=== PATIENT | male | born 1965 | race Caucasian/White ===

== ENCOUNTER → 2019-05-03 14:21 | Outpatient (BNVA) | payer MEDICAID, SELFPAY | PROVIDERS: Visit Provider Nurse Practitioner Family | DX: M70.22 Olecranon bursitis, left elbow (principal); M77.12 Lateral epicondylitis, left elbow; M25.522 Pain in left elbow | CPT/HCPCS: 73080 ==

== ENCOUNTER 2019-11-03 15:24 | Emergency (ER) | payer MEDICAID, SELFPAY ==
[2019-11-03 15:33] VITALS: BP 182/101; PULSE 90; RESP 16; TEMP 36.7; O2SAT 99; BMI 38.9
[2019-11-03 15:52] VITALS: BP 182/101; PULSE 86; RESP 18; O2SAT 99
[2019-11-03 15:54] LABS: Glucose Point of Care 73 mg/dL (70-110)
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
--- NOTE | 2019-11-03 15:56 | XR_ITS ---
WS: [id number] EXAM: AP CHEST: PORTABLE UPRIGHT DATE OF EXAM: 11/03/2019, 1606 hour COMPARISON: Chest x-ray from 05/05/2016. HISTORY: Patient is 54 years old with chest pain. FINDINGS: The cardiac silhouette is normal in size. The mediastinal contours are normal. The pulmonary vas cularity is normal. The lungs are clear of infiltrate. There is no effusion or pneumothorax. No ac mago bony abnormality is seen. XR/XR chest 1V portable [id number] IMPRESSION: No acute pulmonary disease.
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
[2019-11-03 16:26] VITALS: RESP 18; O2SAT 96
[2019-11-03] MEDS: morphine 4 mg/mL SDV 1 mL IVP (16:26)
[2019-11-03 16:27] VITALS: BP 173/80; PULSE 82; RESP 18; O2SAT 97
[2019-11-03 16:32] LABS: Basophils # 0.1 10^3/uL (0.0-0.1); Basophils % 0.7 %; Eosinophils # 0.2 10^3/uL (0.0-0.8); Hemoglobin 14.5 g/dL (11.7-16.6); Lymphocytes % 19.6 %; Mean Corpuscular HGB Conc 32.2 g/dL (30.0-36.0); Mean Corpuscular Hemoglobin 26.8 pg (28.0-34.0); Mean Platelet Volume 9.8 fL (7.4-10.4); Monocytes # 0.6 10^3/uL (0.2-0.9); Monocytes % 5.9 %; Neutrophils # 7.13 10^3/uL (1.8-7.7); Neutrophils % 71.6 %; Nucleated Red Blood Cells % 0 %; Platelet Count 276 10^3/cmm (130-400); Red Blood Count 5.42 10^6/uL (4.1-5.3); Red Cell Distribution Width 13.2 % (12.1-15.1)
[2019-11-03] MEDS: diazePAM 5 mg Tablet PO (16:32)
--- NOTE | 2019-11-03 16:32 | PC.NURSE ---
Patient educated urine sample needed. Patient reports he does not believe that he will be able to go yet. Urinal given to patient and educated to go as soon as he can.
[2019-11-03] MEDS: promethazine 25 mg Tablet PO (16:46)
[2019-11-03 16:48] LABS: Glucose Point of Care 108 mg/dL (70-110)
[2019-11-03 16:51] LABS: Alanine Aminotransferase 38 U/L (0-41); Albumin Level 4.2 g/dL (3.5-5.2); Alkaline Phosphatase 66 IU/L (40-130); Anion Gap 15.2 (5-19); Aspartate Amino Transferase 42 U/L (0-40); Blood Urea Nitrogen 21 mg/dL (6-20); Calcium 9.8 mg/dL (8.5-10.5); Carbon Dioxide 23 mmol/L (22-29); Chloride 103 mmol/L (98-107); Globulin 3.6 g/dL (1.3-4.6); Glomerular Filtration Rate 57.7 mL/min (90-130); Glucose 100 mg/dL (65-115); Osmolality Calculated 281 mOsm/kg (285-295); Potassium 4.2 mmol/L (3.5-5.1); Sodium 137 mmol/L (136-145); Total Bilirubin 0.4 mg/dL (0.15-1.2); Total Protein 7.8 g/dL (6.6-8.7)
[2019-11-03 17:54] LABS: Bilirubin Urine Neg (NEGATIVE); Blood Urine Neg (Negative); Glucose Urine UA Norm (Normal); Ketones Urine Negative (Negative); Nitrate Urine Negative (Negative); Protein Urine 1+ (Negative); Urine Appearance Clear (CLEAR); Urine Color Yellow (Yellow); Urobilinogen Urine Norm (Negative); pH Urine 5 (5-7)
[2019-11-03 17:55] LABS: Add Urine Microscopic? YES; Leukocyte Esterase Urine Negative (Negative)
[2019-11-03 17:56] LABS: Add Urine Culture? No; Bacteria Urine TRACE; Squamous Epithelial Cell Urine 0-4 (0-5); WBC Urine 0-4 /hpf (0-5)
[2019-11-03 18:19] VITALS: BP 187/102; PULSE 79; RESP 16; O2SAT 98
== END 2019-11-03 18:19 | disposition home or self-care (01) ==
PROVIDERS: Emergency Provider Family Medicine
DX: M54.2 Cervicalgia (principal); M54.10 Radiculopathy, site unspecified; Z79.82 Long term (current) use of aspirin; Z79.4 Long term (current) use of insulin; V89.2XXA Person injured in unspecified motor-vehicle accident, traffic, initial encounter
CPT/HCPCS: 12345; 36415; 36416; 71045; 72125; 73030; 80053; 81001; 82962; 85025; 96374; 96375; 99283; J2270; Q0169

== ENCOUNTER 2020-02-27 19:05 | Emergency (ER) | payer MEDICAID, SELFPAY ==
[2020-02-27 19:10] VITALS: BP 139/77; PULSE 113; RESP 18; TEMP 36.7; O2SAT 98; BMI 40.1
--- NOTE | 2020-02-27 19:33 | XR_ITS ---
WS: [id number] XR KUB portable [id number] REASON FOR EXAM: vomiting FINDINGS: Unremarkable bowel gas pattern. No free air or retroperitoneal air. No mass or significant calcification. XR/XR KUB portable [id number] IMPRESSION: No acute abnormality.
--- NOTE | 2020-02-27 19:34 | W.ED.NAVMDI ---
HPI - Nausea/Vomiting/Diarrhea General: Chief complaint: Nausea/Vomiting/Diarrhea Stated complaint: expericencing flu symptoms Time Seen by Provider: 02/27/20 19:17 History of Present Illness: HPI Narrative: 54-year-old diabetic male presenting with 16 hours of vomiting and diarrhea. He notes watery vomit, and watery diarrhea. No blood. He is not sure if he has had a fever. He has generalized epigastric pain here and there. He is not been able to hold much down. His blood sugar has been from 44-277 he says, without any insulin. MD elicited complaint: nausea, vomiting, diarrhea and abdominal pain Pertinent past history: other Onset (ago): hour(s) Description of vomiting: watery Description of diarrhea: watery Associated nausea: Yes Associated abdominal pain: Yes Location of pain: Diffuse Radiation: diffuse Pain consistency: intermittent Severity: mild Quality: cramping Relieving factors: none Associated symtoms: Reports nausea; Denies change in vision, chest pain, cough, dizziness, dysuria or headache(s) Review of Systems Const: Denies: fever(s) Eyes: Denies: change in vision Card: Denies: chest pain Resp: Denies: dyspnea GI: Reports: nausea : Denies: dysuria Neuro: Denies: headache(s) or dizziness PFSH ED PFSH: Surgical History Hx of amputation of foot (~2018) Hx of cholecystectomy (~2005) Hx of sinus surgery Social History Smoking and tobacco status: never smoked Second hand smoke exposure: No Alcohol intake: never Lives independently: Yes Current occupational status: employed History of recent travel: No Current gender identity: Male Physical Exam Const: GENERAL APPEARANCE: well developed ORIENTATION/CONSCIOUSNESS: Yes oriented to person, Yes oriented to place and Yes oriented to time HENMT: COMMON NORMALS: normocephalic, external ears normal and Normal external nose present HEAD & SCALP: normocephalic FACE & SINUS: normal facial exam NOSE: Normal external nose present and No nasal discharge present EXTERNAL EAR: Yes external ears normal Eye: COMMON NORMALS: Equal, round and reactive pupils present, EOMs intact bilaterally and conjunctivae normal EYELID: eyelids normal CONJUNCTIVA: Yes conjunctivae normal PUPIL: Yes Equal, round and reactive pupils present Neck/C-Spine: GENERAL: No tracheal deviation Chest: COMMONS NORMALS: normal inspection of the chest CHEST: No tenderness Resp: COMMON NORMALS: clear to auscultation bilaterally EFFORT & INSPECTION: No tachypneic, No respiratory distress, No retractions, No uses accessory muscles and No tracheal deviation AUSCULTATION: clear to auscultation bilaterally, no rhonchi, no wheezes and lung sounds not diminished Cardio: COMMON NORMALS: regular rate and regular rhythm RATE: regular rate RHYTHM: regular rhythm HEART SOUNDS: no murmurs PERIPHERAL PULSES: radial pulses present GI: INSPECTION: No abdominal distension AUSCULTATION: No Hyperactive bowel sounds present and No Hypoactive bowel sounds present PALPATION: Yes Tenderness to palpation present (GI) (mild epigastric), No Guarding due to palpation present (GI) and No Rigid due to palpation PERCUSSION: no dullness to percussion and no tympanic to percussion Neuro: SENSORIUM/ORIENTATION: Yes oriented to person, Yes oriented to place and Yes oriented to time Psych: COMMON NORMALS: mental status grossly normal Skin: COMMON NORMALS: no rashes or lesions noted GENERAL SKIN EXAM: no rashes or lesions noted Course Vital Signs: Vital signs: Vital Signs Temperature 98.0 F 02/27/20 19:10 Pulse Rate 18 L 02/27/20 22:30 Respiratory Rate 18 02/27/20 22:30 Blood Pressure 187/82 02/27/20 22:30 Pulse Oximetry 97 02/27/20 22:30 MDM - Nausea/Vomiting/Diarrhea MDM Narrative: Medical decision making narrative: Bicarbonate level 20. White blood cell count 18.3. Mild bump in his creatinine. He has had 2 L here, and is feeling much better. No vomiting here. CT of the abdomen shows mild jejunitis. He will be treated with antibiotics for empiric coverage, especially given his leukocytosis with left shift. He was given the option for observation in the hospital, but prefers to go home since he is feeling so much better. He will go home on antiemetics, antibiotics. Liquids for 24 hours. He knows to return for feeling worse, to check his sugar, and to take his blood pressure medicine when he gets home. Lab Data: Labs: Lab Results 12/13/20 12/13/20 12/13/20 Range/Units 19:45 19:45 20:05 WBC Cancelled 18.3 H Corrected WBC Cancelled RBC Cancelled 5.73 H Hgb Cancelled 15.2 Hct Cancelled 47.4 MCV Cancelled 82.7 MCH Cancelled 26.5 L MCHC Cancelled 32.1 RDW Cancelled 13.2 Plt Count Cancelled 352 MPV Cancelled 10.1 Gran % Cancelled Neut % (Auto) Cancelled 91.4 Lymph % (Auto) Cancelled 4.3 [place] % (Auto) Cancelled 3.8 Eos % (Auto) Cancelled 0.0 Baso % (Auto) Cancelled 0.1 Neut # (Auto) Cancelled 16.78 H Lymph # (Auto) Cancelled 0.8 [place] # (Auto) Cancelled 0.7 Eos # (Auto) Cancelled 0.0 Baso # (Auto) Cancelled 0.0 Absolute Gran (aut o) Cancelled Nucleated RBC % (a uto) Cancelled 0 Nucleated RBCs # Cancelled 0.0 Sodium 136 (136-145) mmol/L Potassium 4.7 (3.5-5.1) mmol/L Chloride 100 (98-107) mmol/L Carbon Dioxide 20 L (22-29) mmol/L Anion Gap 20.7 H (5-19) BUN 22 H (6-20) mg/dL Creatinine 1.6 H (0.7-1.2) mg/dL GFR Calculation 45.4 L (90-130) mL/min Glucose 354 H (65-115) mg/dL POC Glucose (70-110) mg/dL Calculated Osmolal ity 300 H (285-295) mOsm/k g Lactate (0.5-2.2) mmol/L Calcium 10.1 (8.5-10.5) mg/dL Total Bilirubin 1.0 (0.15-1.2) mg/dL AST 25 (0-40) U/L ALT 26 (0-41) U/L Alkaline Phosphata se 88 (40-130) IU/L Total Protein 7.5 (6.6-8.7) g/dL Albumin 4.3 (3.5-5.2) g/dL Globulin 3.2 (1.3-4.6) g/dL Lipase 26 (13-60) U/L Urine Color (Yellow) Urine Appearance (CLEAR) Urine pH (5-7) Ur Specific Gravit y (1.005-1.030) Urine Protein (Negative) Urine Glucose (UA) (Normal) Urine Ketones (Negative) Urine Blood (Negative) Urine Nitrate (Negative) Urine Bilirubin (Negative) Urine Urobilinogen (Negative) mg/dL Ur Leukocyte Hayde ase (Negative) Urine RBC (0-2) /hpf Urine WBC (0-5) /hpf Ur Squamous Epith Cells (0-5) /hpf Amorphous Sediment Urine Bacteria (NONE) /hpf Hyaline Casts /lpf Serum Ketones (Negative) 02/27/20 02/27/20 02/27/20 Range/Units 20:05 20:05 20:08 WBC Corrected WBC RBC Hgb Hct MCV MCH MCHC RDW Plt Count MPV Gran % Neut % (Auto) Lymph % (Auto) [place] % (Auto) Eos % (Auto) Baso % (Auto) Neut # (Auto) Lymph # (Auto) [place] # (Auto) Eos # (Auto) Baso # (Auto) Absolute Gran (aut o) Nucleated RBC % (a uto) Nucleated RBCs # Sodium (136-145) mmol/L Potassium (3.5-5.1) mmol/L Chloride (98-107) mmol/L Carbon Dioxide (22-29) mmol/L Anion Gap (5-19) BUN (6-20) mg/dL Creatinine (0.7-1.2) mg/dL GFR Calculation (90-130) mL/min Glucose (65-115) mg/dL POC Glucose 324 (70-110) mg/dL Calculated Osmolal ity (285-295) mOsm/k g Lactate 2.2 (0.5-2.2) mmol/L Calcium (8.5-10.5) mg/dL Total Bilirubin (0.15-1.2) mg/dL AST (0-40) U/L ALT (0-41) U/L Alkaline Phosphata se (40-130) IU/L Total Protein (6.6-8.7) g/dL Albumin (3.5-5.2) g/dL Globulin (1.3-4.6) g/dL Lipase (13-60) U/L Urine Color (Yellow) Urine Appearance (CLEAR) Urine pH (5-7) Ur Specific Gravit y (1.005-1.030) Urine Protein (Negative) Urine Glucose (UA) (Normal) Urine Ketones (Negative) Urine Blood (Negative) Urine Nitrate (Negative) Urine Bilirubin (Negative) Urine Urobilinogen (Negative) mg/dL Ur Leukocyte Hayde ase (Negative) Urine RBC (0-2) /hpf Urine WBC (0-5) /hpf Ur Squamous Epith Cells (0-5) /hpf Amorphous Sediment Urine Bacteria (NONE) /hpf Hyaline Casts /lpf Serum Ketones Negative (Negative) 02/27/20 02/27/20 Range/Units 20:50 22:32 WBC Corrected WBC RBC Hgb Hct MCV MCH MCHC RDW Plt Count MPV Gran % Neut % (Auto) Lymph % (Auto) [place] % (Auto) Eos % (Auto) Baso % (Auto) Neut # (Auto) Lymph # (Auto) [place] # (Auto) Eos # (Auto) Baso # (Auto) Absolute Gran (aut o) Nucleated RBC % (a uto) Nucleated RBCs # Sodium (136-145) mmol/L Potassium (3.5-5.1) mmol/L Chloride (98-107) mmol/L Carbon Dioxide (22-29) mmol/L Anion Gap (5-19) BUN (6-20) mg/dL Creatinine (0.7-1.2) mg/dL GFR Calculation (90-130) mL/min Glucose (65-115) mg/dL POC Glucose 345 (70-110) mg/dL Calculated Osmolal ity (285-295) mOsm/k g Lactate (0.5-2.2) mmol/L Calcium (8.5-10.5) mg/dL Total Bilirubin (0.15-1.2) mg/dL AST (0-40) U/L ALT (0-41) U/L Alkaline Phosphata se (40-130) IU/L Total Protein (6.6-8.7) g/dL Albumin (3.5-5.2) g/dL Globulin (1.3-4.6) g/dL Lipase (13-60) U/L Urine Color Yellow (Yellow) Urine Appearance Clear (CLEAR) Urine pH 5 (5-7) Ur Specific Gravit y 1.020 (1.005-1.030) Urine Protein 1+ H (Negative) Urine Glucose (UA) 4+ H (Normal) Urine Ketones Negative (Negative) Urine Blood 2+ H (Negative) Urine Nitrate Negative (Negative) Urine Bilirubin 1+ H (Negative) Urine Urobilinogen Norm (Negative) mg/dL Ur Leukocyte Hayde ase Negative (Negative) Urine RBC 0-4 H (0-2) /hpf Urine WBC 0-4 H (0-5) /hpf Ur Squamous Epith Cells 0-4 H (0-5) /hpf Amorphous Sediment Not Reportable Urine Bacteria Trace (NONE) /hpf Hyaline Casts 5-10 H /lpf Serum Ketones (Negative) Discharge Plan Discharge Patient Disposition: Home Clinical Impression: Jejunitis Condition: Stable Prescriptions: New Cipro 500 mg tablet 500 mg PO BID Qty: 14 RF: 0 Flagyl 500 mg tablet 500 mg PO BID 7 Days Qty: 14 RF: 0 Zofran 4 mg tablet 4 mg PO Q6H PRN (Reason: nausea and vomiting) Qty: 10 RF: 0 No Action olmesartan-hydrochlorothiazide [Benicar HCT] 40-25 mg tablet 1 tab PO DAILY RF: 0 aspirin 325 mg tablet,delayed release (DR/EC) 325 mg PO DAILY RF: 0 carisoprodol [Soma] 250 mg tablet 250 mg PO TID PRN (Reason: muscle pain) Qty: 60 RF: 0 amlodipine 10 mg tablet 10 mg PO DAILY Qty: 30 RF: 5 Lantus Solostar U-100 Insulin 100 unit/mL (3 mL) insulin pen 90 unit SUBCUT .HS 30 Days Qty: 30 RF: 4 metoprolol succinate [Toprol XL] 50 mg tablet extended release 24 hr 50 mg PO DAILY Qty: 30 RF: 5 olmesartan [Benicar] 40 mg tablet 40 mg PO DAILY Qty: 30 RF: 4 (DME) pen needle, diabetic [Pen Needle] 31 gauge x 1/4 needle See Rx Instructions .ROUTE .MEDSUPPLY Qty: 100 RF: 2 rosuvastatin [Crestor] 40 mg tablet 40 mg PO DAILY Qty: 30 RF: 4 (DME) OneTouch Ultra Blue Test Strip Strip See Rx Instructions .ROUTE .MEDSUPPLY Qty: 10 RF: 0 insulin aspart U-100 [Novolog Flexpen U-100 Insulin] 100 unit/mL (3 mL) insulin pen 40 - 60 unit SUBCUT TID Qty: 15 RF: 5 (DME) Diabetic shoes with molded inserts See Rx Instructions .Route .MEDSUPPLY Qty: 1 RF: 0 hydrocodone-acetaminophen 5-325 mg tablet 1 tab PO Q6H PRN (Reason: pain) Qty: 20 RF: 0 diclofenac sodium 75 mg tablet,delayed release (DR/EC) 75 mg PO Q12H PRN (Reason: pain) Qty: 20 RF: 0 Discharge Orders: Discharge ED (Routine); Ordered 02/27/20 Ordered By: Patricio France Discharge Diet: Advance as tolerated and Clear Liquid Discharge Activity: Increase activity as tolerated Patient Instructions: Gastroenteritis (ED), Acute Nausea and Vomiting (ED) Activity Restrictions/Additional Instructions: Take the nausea medicine scheduled every 6 hours for the next 24 hours, then as needed. Antibiotics as directed. Follow a liquid diet for 24 hours, then you may advance as tolerated if no vomiting. Plenty of liquids. Check your sugars often and treat accordingly. Take your blood pressure medicine when you get home. Return for vomiting liquids or medications, worsening pain or vomiting despite treatment, fever greater than 100 despite 2-3 doses of antibiotics, inability to control your sugars at home, any other concerning symptoms. Coding Level of Care Code ED [employer] Charge [employer] for [employer] Fwd Exam Comprehensive
[2020-02-27] MEDS: metoclopramide 5 mg/mL SDV 2 mL 10 MG IVP (19:55)
[2020-02-27] MEDS: sodium chloride 0.9% 1,000 ML 999 ML IV ×2 (19:55→22:19)
[2020-02-27] MEDS: ondansetron 2 mg/ML SDV 2 mL 4 MG IVP (19:55)
[2020-02-27 20:05] VITALS: BP 123/73; PULSE 94; RESP 20; O2SAT 95
[2020-02-27 20:10] LABS: Alanine Aminotransferase 26 U/L (0-41); Albumin Level 4.3 g/dL (3.5-5.2); Alkaline Phosphatase 88 IU/L (40-130); Aspartate Amino Transferase 25 U/L (0-40); Blood Urea Nitrogen 22 mg/dL (6-20); Calcium 10.1 mg/dL (8.5-10.5); Carbon Dioxide 20 mmol/L (22-29); Chloride 100 mmol/L (98-107); Globulin 3.2 g/dL (1.3-4.6); Glomerular Filtration Rate 45.4 mL/min (90-130); Glucose 354 mg/dL (65-115); Lipase 26 U/L (13-60); Osmolality Calculated 300 mOsm/kg (285-295); Sodium 136 mmol/L (136-145); Total Protein 7.5 g/dL (6.6-8.7)
[2020-02-27 20:10] LABS: Glucose Point of Care 324 mg/dL (70-110)
[2020-02-27 20:11] LABS: Anion Gap 20.7 (5-19); Potassium 4.7 mmol/L (3.5-5.1)
[2020-02-27 20:18] LABS: Basophils % 0.1 %; Hematocrit 47.4 % (42.0-52.0); Hemoglobin 15.2 g/dL (11.7-16.6); Lymphocytes # 0.8 10^3/uL (0.8-4.8); Lymphocytes % 4.3 %; Mean Corpuscular HGB Conc 32.1 g/dL (30.0-36.0); Mean Corpuscular Hemoglobin 26.5 pg (28.0-34.0); Mean Corpuscular Volume 82.7 fL (80-94); Mean Platelet Volume 10.1 fL (7.4-10.4); Monocytes # 0.7 10^3/uL (0.2-0.9); Monocytes % 3.8 %; Neutrophils # 16.78 10^3/uL (1.8-7.7); Neutrophils % 91.4 %; Nucleated Red Blood Cells % 0 %; Platelet Count 352 10^3/cmm (130-400); Red Blood Count 5.73 10^6/uL (4.1-5.3); Red Cell Distribution Width 13.2 % (12.1-15.1); White Blood Count 18.3 10^3/uL (4.0-10.0)
--- NOTE | 2020-02-27 20:43 | CTR_ITS ---
PROCEDURE INFORMATION: Exam: CT Abdomen And Pelvis With Contrast Exam date and time: 02/27/2020 8:51 PM Age: 54 years old Clinical indication: Abdominal pain; Prior surgery; Surgery date: 6+ months; Surgery type: Gb; Patient HX: C/O epigastric pain w n/v; Additional info: Vomiting abd pain TECHNIQUE: Imaging protocol: Computed tomography of the abdomen and pelvis with intravenous contrast. Radiation optimization: All CT scans at this facility use at least one of these dose optimization techniques: automated exposure control; mA and/or kV adjustment per patient size (includes targeted exams where dose is matched to clinical indication); or iterative reconstruction. Contrast material: VISI 320; Contrast volume: 95 ml; Contrast route: INTRAVENOUS (IV); COMPARISON: CT abdomen pelvis wo con [id number] 04/25/2016 7:31 PM RADIATION DOSE METRICS: Total DLP (mGy-cm): 1917.11 FINDINGS: Liver: Normal. No mass. Gallbladder and bile ducts: Stable cholecystectomy. Pancreas: Normal. No ductal dilation. Spleen: Normal. No splenomegaly. Adrenal glands: Normal. No mass. Kidneys and ureters: Normal. No hydronephrosis. Stomach and bowel: Mildly prominent loops of jejunum suggesting mild jejunitis. Appendix: Normal appendix. Intraperitoneal space: Unremarkable. No free air. No significant fluid collection. Vasculature: Unremarkable. No abdominal aortic aneurysm. Lymph nodes: Unremarkable. No enlarged lymph nodes. Urinary bladder: Unremarkable as visualized. Reproductive: Unremarkable as visualized. Bones/joints: Mild to moderate multilevel spine degenerative changes including degenerative disc disease, spondylosis and facet degenerative changes. Soft tissues: Unremarkable. CT/CT abdomen pelvis w con* [id number] IMPRESSION: Mildly prominent loops of jejunum suggesting mild jejunitis. Radiation Dose CTDIVOL = (mGy): DLP = 1917.11 (mGy-cm)
[2020-02-27] MEDS: insulin regular-human 100 units/1 mL 8 UNIT IVP (20:52)
[2020-02-27] MEDS: iodixanol 320 mg/mL 100mL Btl IV (21:12)
[2020-02-27 21:15] LABS: Ketone (Acetest) Serum Negative (Negative)
[2020-02-27 21:26] LABS: Add Urine Microscopic? YES; Bilirubin Urine 1+ (Negative); Blood Urine 2+ (Negative); Glucose Urine UA 4+ (Normal); Ketones Urine Negative (Negative); Leukocyte Esterase Urine Negative (Negative); Nitrate Urine Negative (Negative); Protein Urine 1+ (Negative); Urine Appearance Clear (CLEAR); Urine Color Yellow (Yellow); Urobilinogen Urine Norm (Negative); pH Urine 5 (5-7)
[2020-02-27 21:27] LABS: Add Urine Culture? No; Bacteria Urine TRACE /hpf; RBC Urine 0-4 /hpf (0-2); Squamous Epithelial Cell Urine 0-4 /hpf (0-5); WBC Urine 0-4 /hpf (0-5)
[2020-02-27 21:30] LABS: Lactate (Lactic Acid level) 2.2 mmol/L (0.5-2.2)
[2020-02-27 21:31] VITALS: BP 183/91; PULSE 82; RESP 18; O2SAT 96
[2020-02-27] MEDS: metoprolol tartrate 1 mg/1 mL SDV 5 mL 5 MG IV (21:53)
[2020-02-27] MEDS: LORazepam 2 mg/mL INJ 1 mL 1 MG IVP (21:54)
[2020-02-27 22:30] VITALS: BP 187/82; PULSE 18; RESP 18; O2SAT 97
[2020-02-27 22:36] LABS: Glucose Point of Care 345 mg/dL (70-110)
[2020-02-27 23:06] VITALS: BP 146/82; PULSE 76; RESP 18; O2SAT 97
[2020-02-27] MEDS: metroNIDAZOLE 500 MG Tablet PO (23:10)
[2020-02-27] MEDS: ciprofloxacin 500 mg Tablet PO (23:10)
--- NOTE | 2020-02-27 23:12 | PC.NURSE ---
i agree with this assessment
== END 2020-02-27 23:12 | disposition home or self-care (01) ==
PROVIDERS: Emergency Provider Emergency Medicine
DX: K52.9 Noninfective gastroenteritis and colitis, unspecified (principal); Z79.82 Long term (current) use of aspirin; Z79.4 Long term (current) use of insulin
CPT/HCPCS: 12345; 36416; 74018; 74177; 80053; 81001; 82009; 82962; 83605; 83690; 85025; 96361; 96374; 96375; 99283; 99284; J1815; J2060; J2405; J2765; J3490; J7030; Q9967

== ENCOUNTER → 2020-04-05 08:32 | Outpatient (BNVA) | payer MEDICAID, SELFPAY | PROVIDERS: PCP Family Medicine; Referring Provider Family Medicine; Visit Provider Anesthesiology | DX: M54.2 Cervicalgia (principal); M25.511 Pain in right shoulder | CPT/HCPCS: 99204 ==

== ENCOUNTER 2020-07-02 17:31 | Emergency (ER) | payer MEDICAID, SELFPAY ==
[2020-07-02 17:32] VITALS: BP 221/107; PULSE 90; RESP 18; TEMP 36.8; O2SAT 96; BMI 37.7
[2020-07-02 17:41] VITALS: BP 242/106; PULSE 98; RESP 24; O2SAT 98
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
[2020-07-02 18:16] VITALS: RESP 18
[2020-07-02] MEDS: ondansetron 2 mg/ML SDV 2 mL 4 MG IVP (18:16)
[2020-07-02] MEDS: HYDROmorphone 1 mg/mL INJ 1 mL IVP (18:16)
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
[2020-07-02 18:22] LABS: Basophils # 0.1 10^3/uL (0.0-0.1); Basophils % 0.9 %; Eosinophils # 0.3 10^3/uL (0.0-0.8); Eosinophils % 2.8 %; Hematocrit 46.9 % (42.0-52.0); Hemoglobin 15.1 g/dL (11.7-16.6); Lymphocytes # 3.2 10^3/uL (0.8-4.8); Lymphocytes % 32.3 %; Mean Corpuscular HGB Conc 32.2 g/dL (30.0-36.0); Mean Corpuscular Hemoglobin 26.5 pg (28.0-34.0); Mean Corpuscular Volume 82.3 fL (80-94); Mean Platelet Volume 11.3 fL (7.4-10.4); Monocytes # 0.6 10^3/uL (0.2-0.9); Monocytes % 6.4 %; Neutrophils # 5.58 10^3/uL (1.8-7.7); Nucleated Red Blood Cells % 0 %; Platelet Count 270 10^3/cmm (130-400); Red Cell Distribution Width 13.7 % (12.1-15.1); White Blood Count 9.8 10^3/uL (4.0-10.0)
[2020-07-02 18:52] LABS: Alanine Aminotransferase 35 U/L (0-41); Albumin Level 4.7 g/dL (3.5-5.2); Alkaline Phosphatase 83 IU/L (40-130); Anion Gap 13.6 (5-19); Aspartate Amino Transferase 35 U/L (0-40); Blood Urea Nitrogen 24 mg/dL (6-20); Calcium 9.1 mg/dL (8.5-10.5); Carbon Dioxide 28 mmol/L (22-29); Chloride 97 mmol/L (98-107); Globulin 3.2 g/dL (1.3-4.6); Glomerular Filtration Rate 45.4 mL/min (90-130); Glucose 180 mg/dL (65-115); Osmolality Calculated 287 mOsm/kg (285-295); Potassium 4.6 mmol/L (3.5-5.1); Sodium 134 mmol/L (136-145); Total Bilirubin 0.3 mg/dL (0.15-1.2); Total Protein 7.9 g/dL (6.6-8.7)
[2020-07-02 18:54] VITALS: BP 213/108; PULSE 85; RESP 18; O2SAT 96
--- NOTE | 2020-07-02 19:04 | PC.NURSE ---
report received from EVAN Vaughn and care transferred to EVAN Escobedo
[2020-07-02 20:02] VITALS: PULSE 80; RESP 17; O2SAT 94
[2020-07-02 20:06] VITALS: BP 163/86; PULSE 76; RESP 17; O2SAT 95
== END 2020-07-02 20:09 | disposition home or self-care (01) ==
PROVIDERS: Emergency Provider Emergency Medicine; PCP Family Medicine
DX: S13.4XXA Sprain of ligaments of cervical spine, initial encounter (principal); S29.012A Strain of muscle and tendon of back wall of thorax, initial encounter; Z79.82 Long term (current) use of aspirin; Z79.4 Long term (current) use of insulin; V89.2XXA Person injured in unspecified motor-vehicle accident, traffic, initial encounter
CPT/HCPCS: 72125; 72128; 72131; 80053; 85025; 96374; 96375; 99283; J1170; J2405

== ENCOUNTER 2020-07-18 09:30 | Outpatient (CLI) | payer MEDICAID, SELFPAY | END 2020-07-18 09:31 | disposition home or self-care (01) | LOC: RADSHAW 05-31 15:05 → LAB 05-31 15:07 | PROVIDERS: PCP Family Medicine; Visit Provider Family Medicine | DX: E11.9 Type 2 diabetes mellitus without complications (principal) | CPT/HCPCS: 80053; 80061; 83036; 85025 ==

== ENCOUNTER 2020-11-11 00:11 | Emergency (ER) | payer MEDICAID, SELFPAY ==
[2020-11-11 00:21] VITALS: BP 212/101; PULSE 78; RESP 16; TEMP 36.6; O2SAT 96; BMI 38.9
[2020-11-11 00:24] VITALS: BP 155/97; PULSE 87; RESP 20; O2SAT 98
--- NOTE | 2020-11-11 00:41 | XRR_ITS ---
PROCEDURE INFORMATION: Exam: XR Left Ribs with PA Chest Exam date and time: 11/11/2020 12:41 AM Age: 55 years old Clinical indication: Injury or trauma; Fall; Rib area, left side; Blunt trauma; Patient HX: Patient fell off of a trailer two days ago. C/O left rib pain with painful inspiration. TECHNIQUE: Imaging protocol: XR Left ribs with PA chest. Views: 3 views COMPARISON: CR XR chest 1V portable [id number] 11/03/2019 4:05 PM FINDINGS: Lungs: Unremarkable. No consolidation. Pleural spaces: Unremarkable. No pleural effusion. No pneumothorax. Heart/Mediastinum: Unremarkable. No cardiomegaly. Bones/joints: Left anterior 7th and 8th healed left rib fractures. Image 1006. XR/XR ribs LT mn 3V w CXR1V [id number] IMPRESSION: 1. Left anterior 7th and 8th healed left rib fractures. Image 1006. 2. No acute findings.
--- NOTE | 2020-11-11 01:24 | W.ED.FALL ---
HPI - Fall General: Chief Complaint: Fall Stated Complaint: Broken Ribs Time Seen by Provider: 11/11/20 00:41 History of Present Illness: HPI Narrative: 5-year-old male who fell off of a trailer 2 nights ago, landing on his left side. He complains of left lateral rib pain and pain with deep breath and cough. No significant trouble breathing. No belly pain, no vomiting. States he is not bruised. MD complaint: fall Onset (ago): day(s) (2) Fall from: from height (distance) Fall witnessed: no Place fall occurred: other Loss of consciousness: None Prolonged down time: no Symptoms prior to fall: none Context: tripped/slipped Location of injury: chest Quality: stabbing and aching Associated symptoms-after fall: Reports chest pain; Denies abdominal pain, confusion, difficulty walking, headache(s), hematuria, neck pain, numbness, short of breath or weakness Review of Systems Card: Reports: chest pain Resp: Denies: dyspnea, productive cough or non-productive cough GI: Denies: abdominal pain : Denies: hematuria Musc: Denies: neck pain Neuro: Denies: headache(s), difficulty walking or confusion PFSH ED PFSH: Medical History Encounter for long-term opiate analgesic use Encounter for narcotic contract discussion Surgical History Hx of amputation of foot (~2018) Hx of cholecystectomy (~2005) Hx of sinus surgery Social History Smoking and tobacco status: former smoker Second hand smoke exposure: No Alcohol intake: never Lives independently: Yes Current occupational status: employed History of recent travel: No Current gender identity: Male Physical Exam Const: GENERAL APPEARANCE: cooperative and in distress (in pain); not comfortable HENMT: COMMON NORMALS: normocephalic HEAD & SCALP: normocephalic Eye: COMMON NORMALS: Equal, round and reactive pupils present and EOMs intact bilaterally PUPIL: Yes Equal, round and reactive pupils present Neck/C-Spine: CERVICAL SPINE: No Cervical spine tenderness Chest: COMMONS NORMALS: normal inspection of the chest CHEST: Yes tenderness rib (Left 6-7) Resp: COMMON NORMALS: normal respiratory effort, No retractions, No use of accessory muscles and clear to auscultation bilaterally AUSCULTATION: clear to auscultation bilaterally Cardio: COMMON NORMALS: regular rate and regular rhythm RATE: regular rate RHYTHM: regular rhythm Back/Pelvis: THORACIC SPINE/UPPER BACK: No thoracic spinal tenderness Neuro: RADHA COMA SCALE: document [facility] findings [facility] coma scale eye opening: Spontaneous [facility] coma scale verbal response: Orientated Radha coma scale motor response: Obey commands Radha coma scale total score: 15 Course Vital Signs: Vital signs: Vital Signs Temperature 97.8 F 11/11/20 00:21 Pulse Rate 87 11/11/20 00:24 Respiratory Rate 20 H 11/11/20 00:24 Blood Pressure 155/97 11/11/20 00:24 Pulse Oximetry 98 11/11/20 00:24 MDM - Fall MDM Narrative: Medical decision making narrative: X-rays reveal healed some delayed rib fractures per radiology report. This is over the area where he is tender. He will be treated for acute rib fracture. Discharge Plan Discharge Patient Disposition: Home Clinical Impression: Closed rib fracture Qualifiers: Encounter type: initial encounter Rib fracture type: multiple ribs Laterality: left Qualified Code(s): S22.42XA - Multiple fractures of ribs, left side, initial encounter for closed fracture Condition: Stable Prescriptions: Continued hydrocodone-acetaminophen 5-325 mg tablet 1 tab PO Q6H PRN (Reason: pain) Qty: 14 RF: 0 No Action aspirin 325 mg tablet,delayed release (DR/EC) 325 mg PO DAILY RF: 0 carisoprodol [Soma] 250 mg tablet 250 mg PO TID PRN (Reason: muscle pain) Qty: 60 RF: 0 amlodipine 10 mg tablet 10 mg PO DAILY Qty: 30 RF: 5 metoprolol succinate [Toprol XL] 50 mg tablet extended release 24 hr 50 mg PO DAILY Qty: 30 RF: 5 olmesartan [Benicar] 40 mg tablet 40 mg PO DAILY Qty: 30 RF: 4 (DME) pen needle, diabetic [Pen Needle] 31 gauge x 1/4 needle See Rx Instructions .ROUTE .MEDSUPPLY Qty: 100 RF: 2 rosuvastatin [Crestor] 40 mg tablet 40 mg PO DAILY Qty: 30 RF: 4 pregabalin [Lyrica] 50 mg capsule 50 mg PO TID 30 Days Qty: 90 RF: 0 (DME) Custom Molded Accommodated Orthotics with Toe Filler on Right See Rx Instructions .Route .MEDSUPPLY Qty: 1 RF: 0 (DME) Diabetic shoes with molded inserts See Rx Instructions .Route .MEDSUPPLY Qty: 1 RF: 0 Lantus Solostar U-100 Insulin 100 unit/mL (3 mL) insulin pen 90 unit SUBCUT .HS 30 Days Qty: 30 RF: 4 insulin aspart U-100 [Novolog Flexpen U-100 Insulin] 100 unit/mL (3 mL) insulin pen 40 - 60 unit SUBCUT TID Qty: 15 RF: 5 Bydureon BCise 2 mg/0.85 mL auto-injector 2 mg SUBCUT Q7D Qty: 3.4 RF: 2 (DME) OneTouch Ultra Blue Test Strip Strip See Rx Instructions .ROUTE .MEDSUPPLY Qty: 100 RF: 2 Robaxin-750 750 mg tablet 750 mg PO Q6H Qty: 30 RF: 0 Naprosyn 500 mg tablet 500 mg PO BID PRN (Reason: pain) Qty: 20 RF: 0 Discharge Orders: Discharge ED (Routine); Ordered 11/11/20 Ordered By: Patricio France Patient Instructions: Rib Fracture (ED), Opioid Safety Activity Restrictions/Additional Instructions: Use the incentive spirometer every hour while awake. This can keep you from getting pneumonia. Return for shortness of breath that worsens, fever greater than 100, cough, sputum production, worsening pain despite treatment, other concerning symptoms. Coding Level of Care Code ED [employer] Exam Comprehensive
[2020-11-11] MEDS: ondansetron 2 mg/ML SDV 2 mL 4 MG PO (01:47)
[2020-11-11] MEDS: HYDROmorphone 1 mg/mL INJ 1 mL 2 MG IM (01:47)
== END 2020-11-11 02:23 | disposition home or self-care (01) ==
PROVIDERS: Emergency Provider Emergency Medicine
DX: S22.42XA Multiple fractures of ribs, left side, initial encounter for closed fracture (principal); Z87.891 Personal history of nicotine dependence; W17.89XA Other fall from one level to another, initial encounter
CPT/HCPCS: 71101; 96372; 99283; J1170; J2405

== ENCOUNTER 2020-11-13 09:04 | Emergency (ER) | payer MEDICAID, SELFPAY ==
[2020-11-13 09:15] VITALS: BP 242/127; PULSE 99; RESP 22; TEMP 36.2; O2SAT 97; BMI 38.9
[2020-11-13 09:24] VITALS: BP 242/127; PULSE 90; RESP 18; O2SAT 96
--- NOTE | 2020-11-13 09:30 | XRR_ITS ---
PROCEDURE INFORMATION: Exam: XR Thoracic Spine Exam date and time: 11/13/2020 9:30 AM Age: 55 years old Clinical indication: Injury or trauma; Fall; Blunt trauma (contusions or hematomas); Additional info: Left sided upper spine area pain TECHNIQUE: Imaging protocol: XR of the thoracic spine. Views: 3 views. COMPARISON: CT thoracic spin wo con* [id number] 07/02/2020 7:21 PM FINDINGS: Bones/joints: No acute fracture or subluxation. There is straightening of the normal thoracic kyphosis. Unchanged mild anterior wedge compression fracture deformity of T10, T11 and T12. Other vertebral body heights are well maintained. Soft tissues: Unremarkable. Intraperitoneal space: Cholecystectomy clips project over the right upper quadrant. XR/XR thoracic spine 3V* [id number] IMPRESSION: No acute injury seen.
--- NOTE | 2020-11-13 09:30 | XRR_ITS ---
PROCEDURE INFORMATION: Exam: XR Left Ribs with PA Chest Exam date and time: 11/13/2020 9:30 AM Age: 55 years old Clinical indication: Injury or trauma; Rib area, left side; Blunt trauma; Injury details: Left ribs and spine pain from a fall; Additional info: Worsening pain and feeld like something moving withdeep keon TECHNIQUE: Imaging protocol: XR Left ribs with PA chest. Views: 3 views COMPARISON: CR (CHEST, ) 11/11/2020 12:57 AM FINDINGS: Lungs: Unremarkable. No consolidation. Pleural spaces: Unremarkable. No pleural effusion. No pneumothorax. Heart/Mediastinum: Unremarkable. No cardiomegaly. Bones/joints: There is mildly displaced fracture of the left posterior 8th, 9th and 10th ribs, and possibly 11th rib. XR/XR ribs LT mn 3V w CXR1V [id number] IMPRESSION: Mildly displaced fracture of the left posterior 8th, 9th and 10th ribs, and possibly 11th rib
--- NOTE | 2020-11-13 09:33 | ED_ITS ---
HPI - Back Pain/Injury General: Chief Complaint: Back Pain/Injury Stated Complaint: RIB PAIN: SEEN FRI FOR SAME; STATES PAIN IS WORSE Time Seen by Provider: 11/13/20 09:09 History of Present Illness: HPI Narrative: Patient states back and ribs continue to hurt from his fall the other day. Patient says that pain medication prescription was not signed here from the ER so he did not have pain medications take. Says it hurts with deep breaths hurts with movement. Does not have pain when he is laying still. X-ray says healed fracture on the report. MD elicited complaint: other (Rib pain left side) Pertinent past history: prior back pain and recent trauma Onset (ago): day(s) Timing: constant and progressively worsening Severity: moderate Similar Symptoms Previously: Yes Quality: aching Location: left upper back Radiation: none Exacerbating factors: movement Relieving factors: immobilization Associated symptoms: Reports no associated symptoms; Deny abdominal pain, chills, fever(s), nausea or vomiting Review of Systems Const: Denies: fever(s), chills or body aches Eyes: Denies: change in vision or blurry vision ENMT: Denies: throat pain or nasal congestion Card: Denies: chest pain or dyspnea on exertion Resp: Denies: dyspnea, productive cough or non-productive cough GI: Denies: abdominal pain, nausea or vomiting : Denies: difficulty urinating Musc: Reports: back pain (Pain left side upper back seventh and eighth fifth and sixth rib areas); Denies: extremity pain Skin/Breast: Denies: rash Neuro: Denies: headache(s) Psych: Denies: anxiety or depression Kit/Lymph: Denies: easy bruising PFSH ED PFSH: Medical History Encounter for long-term opiate analgesic use Encounter for narcotic contract discussion Surgical History Hx of amputation of foot (~2018) Hx of cholecystectomy (~2005) Hx of sinus surgery Social History Smoking and tobacco status: former smoker Second hand smoke exposure: No Alcohol intake: never Lives independently: Yes Current occupational status: employed History of recent travel: No Current gender identity: Male Physical Exam Const: COMMON NORMALS: no acute distress, average body habitus and patient oriented x3 HENMT: COMMON NORMALS: normocephalic HEAD & SCALP: normal to inspection and normocephalic FACE & SINUS: normal facial exam Eye: COMMON NORMALS: conjunctivae normal GENERAL EYE: appearance normal, both eyes and all related structures CONJUNCTIVA: Yes conjunctivae normal Neck/C-Spine: COMMON NORMALS: no JVD Chest: COMMONS NORMALS: normal inspection of the chest Resp: COMMON NORMALS: normal respiratory effort and clear to auscultation bilaterally AUSCULTATION: clear to auscultation bilaterally Cardio: COMMON NORMALS: no JVD, regular rate and regular rhythm RATE: regular rate RHYTHM: regular rhythm GI: COMMON NORMALS: Normal to inspection, nondistended, normoactive bowel sounds present Back/Pelvis: OTHER: Tenderness palpation to upper left side of the back between thoracic spine shoulder blade area. Extremity: COMMON NORMALS: normal to inspection and full ROM Neuro: COMMON NORMALS: patient oriented x3 Course Vital Signs: Vital signs: Vital Signs Temperature 97.2 F L 11/13/20 09:15 Pulse Rate 97 11/13/20 10:21 Respiratory Rate 18 11/13/20 09:24 Blood Pressure 231/118 11/13/20 10:21 Pulse Oximetry 97 11/13/20 10:21 MDM - Back Pain/Injury MDM Narrative: Medical decision making narrative: Patient has multiple fractured ribs not seen on previous x-ray 2 days ago. Patient denies any new injury. Patient is a hydrocodone prescription was not signed and he brought that in along with him. When then destroyed that prescription and issued him a new one. Patient's blood pressures been elevated here. Patient said he is not taking his blood pressure medicine for 3 days because he has been hurting. Patient was encouraged to take his blood pressure medication as prescribed. Discharge Plan Discharge Patient Disposition: Home Clinical Impression: Multiple fractures of ribs of left side Qualifiers: Encounter type: initial encounter Fracture type: closed Qualified Code(s): S2 2.42XA - Multiple fractures of ribs, left side, initial encounter for closed fracture HTN (hypertension) Qualifiers: Hypertension type: essential hypertension Qualified Code(s): I10 - Essential (primary) hypertension Condition: Stable Prescriptions: New hydrocodone-acetaminophen 5-325 mg tablet 1 tab PO TID PRN (Reason: pain) Qty: 21 RF: 0 Celebrex 100 mg capsule 100 mg PO BID Qty: 20 RF: 0 Held Naprosyn 500 mg tablet 500 mg PO BID PRN (Reason: pain) Qty: 20 RF: 0 Hold Instructions: Resume on 11/23/20. No Action aspirin 325 mg tablet,delayed release (DR/EC) 325 mg PO DAILY RF: 0 carisoprodol [Soma] 250 mg tablet 250 mg PO TID PRN (Reason: muscle pain) Qty: 60 RF: 0 amlodipine 10 mg tablet 10 mg PO DAILY Qty: 30 RF: 5 metoprolol succinate [Toprol XL] 50 mg tablet extended release 24 hr 50 mg PO DAILY Qty: 30 RF: 5 olmesartan [Benicar] 40 mg tablet 40 mg PO DAILY Qty: 30 RF: 4 (DME) pen needle, diabetic [Pen Needle] 31 gauge x 1/4 needle See Rx Instructions .ROUTE .MEDSUPPLY Qty: 100 RF: 2 rosuvastatin [Crestor] 40 mg tablet 40 mg PO DAILY Qty: 30 RF: 4 pregabalin [Lyrica] 50 mg capsule 50 mg PO TID 30 Days Qty: 90 RF: 0 (DME) Custom Molded Accommodated Orthotics with Toe Filler on Right See Rx Instructions .Route .MEDSUPPLY Qty: 1 RF: 0 (DME) Diabetic shoes with molded inserts See Rx Instructions .Route .MEDSUPPLY Qty: 1 RF: 0 Lantus Solostar U-100 Insulin 100 unit/mL (3 mL) insulin pen 90 unit SUBCUT .HS 30 Days Qty: 30 RF: 4 insulin aspart U-100 [Novolog Flexpen U-100 Insulin] 100 unit/mL (3 mL) insulin pen 40 - 60 unit SUBCUT TID Qty: 15 RF: 5 Bydureon BCise 2 mg/0.85 mL auto-injector 2 mg SUBCUT Q7D Qty: 3.4 RF: 2 (DME) OneTouch Ultra Blue Test Strip Strip See Rx Instructions .ROUTE .MEDSUPPLY Qty: 100 RF: 2 Robaxin-750 750 mg tablet 750 mg PO Q6H Qty: 30 RF: 0 hydrocodone-acetaminophen 5-325 mg tablet 1 tab PO Q6H PRN (Reason: pain) Qty: 14 RF: 0 Discharge Orders: Discharge ED (Routine); Ordered 11/13/20 Ordered By: Jeremiah Silva Referrals: Zahida Baldwin MD [Primary Care Provider] - Discharge Diet: Usual diet Discharge Activity: Increase activity as tolerated Patient Instructions: Rib Fracture (ED), Opioid Safety Activity Restrictions/Additional Instructions: Follow-up with medical provider as directed. Take medications as prescribed. Return to the ER or your medical provider if condition worsens. Please read and understand discharge instructions. If any questions ask please. Make sure you take your blood pressure medicine as prescribed. Coding Level of Care Code ED Household [employer]liance [employer] for Chg Fwd Exam Comprehensive
[2020-11-13] MEDS: cloNIDine 0.1 mg Tablet 0.2 MG PO (10:15)
[2020-11-13] MEDS: HYDROcodone-acetaminophen 10-325 mg Tablet 1 TAB PO (10:15)
[2020-11-13] MEDS: ketorolac 60 mg/2 mL INJ IM (10:16)
[2020-11-13 10:21] VITALS: BP 231/118; PULSE 97; O2SAT 97
[2020-11-13 10:49] VITALS: BP 213/130; PULSE 92; RESP 20; O2SAT 96
== END 2020-11-13 10:49 | disposition home or self-care (01) ==
PROVIDERS: Emergency Provider Nurse Practitioner Family; PCP Family Medicine
DX: S22.42XA Multiple fractures of ribs, left side, initial encounter for closed fracture (principal); Z87.891 Personal history of nicotine dependence; W19.XXXA Unspecified fall, initial encounter
CPT/HCPCS: 71101; 72072; 96372; 99283; J1885

== ENCOUNTER 2020-11-16 16:29 | Inpatient (IN) | payer MEDICAID, SELFPAY ==
[2020-11-16] VITALS (17 sets, daily range): BP systolic 111–196; BP diastolic 50–96; PULSE 91–121; RESP 14–23; TEMP 35.8–37.1; O2SAT 94–99; BMI 38.9; BMI 37.7
--- NOTE | 2020-11-16 17:15 | XRR_ITS ---
PROCEDURE INFORMATION: Exam: XR Chest Exam date and time: 11/16/2020 5:15 PM Age: 55 years old Clinical indication: Other: Coughing blood; Additional info: Left rib pain TECHNIQUE: Imaging protocol: XR of the chest. Views: 1 view. COMPARISON: CR XR ribs LT mn 3V w CXR1V [id number] 11/13/2020 9:45 AM FINDINGS: Lungs: Unremarkable. No consolidation. Pleural spaces: Unremarkable. No pleural effusion. No pneumothorax. Heart/Mediastinum: There is cardiomegaly. Bones/joints: No new abnormality compared to the prior exam. Previously visualized fractures of the posterior left 8th through 10th ribs are visualized. XR/XR chest 1V portable [id number] IMPRESSION: No acute findings.
--- NOTE | 2020-11-16 17:24 | ED_ITS ---
Documented by User: KRISTAN Rodriguez 11/16/20 20:24 HPI - Nausea/Vomiting/Diarrhea General: Chief complaint: Nausea/Vomiting/Diarrhea Stated complaint: Throwing up Bile/Blood Time Seen by Provider: 11/16/20 17:01 History of Present Illness: HPI Narrative: Patient is a 55-year-old male comes to the ED with nausea and vomiting. Patient has a past medical history of hypertension diabetes type 1. Patient was seen here in the ED back on November 11 and due to rib fractures after falling off a trailer. He states that he still having a lot of left rib and chest pain and has not been comfortable for the past several days. Yesterday patient started developing nausea and had multiple episodes of emesis. He is unable to keep any food or fluids down since yesterday. He also reports not having any bowel movements for the past 3 to 4 days as well. Along with the left sided chest and rib pain he has some pain in the left upper quadrant of his abdomen as well. He says that is gotten worse since the nausea and vomiting started. He rates the pain a 7 out of 10 and describes it as a constant sharp pain. He also reports having some blood tinged emesis today. Denies any reoccurring injury or fall to worsen symptoms. Associated nausea: Yes Associated symtoms: Reports chest pain (left rib) and nausea; Denies change in vision, dysuria, fatigue, headache(s) or palpitations Review of Systems Const: Denies: fever(s), chills or fatigue Eyes: Denies: change in vision or eye discomfort ENMT: Denies: throat pain, odynophagia, nasal discharge or nasal congestion Card: Reports: chest pain (left rib); Denies: palpitations, edema, swelling of feet/ankles, dyspnea on exertion or orthopnea Resp: Denies: dyspnea, productive cough or non-productive cough GI: Reports: abdominal pain, nausea, vomiting and hematemesis; Denies: diarrhea, constipation or hematochezia : Denies: flank pain, difficulty urinating, dysuria or hematuria Musc: Denies: neck pain, back pain or extremity swelling Skin/Breast: Denies: rash or new lesions Neuro: Denies: headache(s), numbness in extremities or weakness in extremities [facility] PFSH: Medical History (Updated 11/16/20 @ 21:58 by Lorelei Grace MD) Chronic kidney disease COVID-19 vaccine administered elarm, second dose in April 2020 Diabetes mellitus type 2, insulin dependent Dyslipidemia History of diabetic ulcer of foot HTN (hypertension) Surgical History (Updated 11/16/20 @ 20:27 by Lorelei Grace MD) History of Achilles tendon repair (~2018) History of amputation of toe (~2016) History of amputation of toe (~2018) several History of hand surgery History of transmetatarsal amputation of right foot (~2017) Hx of cholecystectomy (~2004) Hx of sinus surgery Family History (Updated 11/16/20 @ 21:54 by Lorelei Grace MD) Father CAD (coronary artery disease) Heart attack at age 80 Denies family history of Cancer Social History (Updated 11/16/20 @ 21:54 by Lorelei Grace MD) Smoking and tobacco status: former smoker Second hand smoke exposure: No Alcohol intake: never Lives independently: Yes Marital status: Number of children: 2 Current occupational status: employed Current gender identity: Male Physical Exam Const: COMMON NORMALS: patient oriented x3 and alert GENERAL APPEARANCE: cooperative, in distress (Patient appears in pain and is diaphoretic and vomiting) and diaphoretic HENMT: COMMON NORMALS: normocephalic HEAD & SCALP: normocephalic MOUTH: Normal oral and palatal mucosa present THROAT: posterior oropharynx normal and uvula midline Eye: COMMON NORMALS: Equal, round and reactive pupils present and conjunctivae normal CONJUNCTIVA: Yes conjunctivae normal PUPIL: Yes Equal, round and reactive pupils present Neck/C-Spine: COMMON NORMALS: supple GENERAL: Yes normal visual inspection Resp: COMMON NORMALS: normal respiratory effort, No retractions, No use of accessory muscles and clear to auscultation bilaterally AUSCULTATION: clear to auscultation bilaterally Cardio: COMMON NORMALS: regular rhythm, S1 normal heart sound present, S2 normal heart sound present, No gallops present (Cardio), No clicks present (Cardio), No murmurs present (Cardio) and Peripheral pulses 2+ throughout RATE: tachycardic RHYTHM: regular rhythm HEART SOUNDS: S1 normal heart sound present and S2 normal heart sound present PERIPHERAL PULSES: Peripheral pulses 2+ throughout GI: COMMON NORMALS: Normal to inspection, nondistended, normoactive bowel sounds present, Soft to palpation and no masses INSPECTION: Yes central obesity PALPATION: Yes Soft to palpation and Yes Tenderness to palpation present (GI) Details: LUQ : COMMON NORMALS: Yes no CVA tenderness BLADDER/KIDNEY EXAM: Yes no CVA tenderness Back/Pelvis: COMMON NORMALS: no CVA tenderness Extremity: COMMON NORMALS: normal to inspection Neuro: COMMON NORMALS: patient oriented x3 and moves all extremities SENSORIUM/ORIENTATION: Yes alert Skin: COMMON NORMALS: no rashes or lesions noted NARRATIVE SKIN EXAM: Patient is diaphoretic on face. GENERAL SKIN EXAM: no rashes or lesions noted Course Vital Signs: Vital signs: Vital Signs Temperature 98.1 F 11/18/20 13:20 Pulse Rate 85 11/18/20 13:20 Respiratory Rate 16 11/18/20 13:20 Blood Pressure 109/68 11/18/20 13:20 Pulse Oximetry 99 11/18/20 13:20 MDM - Nausea/Vomiting/Diarrhea MDM Narrative: Medical decision making narrative: I performed the initial history physical exam and lab and imaging work-up of patient. Patient presented to the ED with nausea, vomiting and left upper quadrant abdominal pain. Past medical history of type 1 diabetes and hypertension. Patient was seen here in the ED back on November 13 for left rib fractures. He is continuing to have left chest and rib pain, but states that he started developing nausea and vomiting yesterday. Vitals blood pressure 149/96, pulse 107, respirations 20, temp 96.4 and O2 saturation 97% on room air. Patient appeared diaphoretic and ill and was having episode of emesis while in the ED room. He had some left upper quadrant abdominal tenderness, but rest of exam was benign. White blood cell count 16.9 and the rest of CBC was unremarkable. Sodium 128, potassium 6.2, anion gap 37.2, creatinine 1.5 and glucose was 575. Lipase was normal. EKG showed sinus tachycardia with some spiked T waves but no ST segment elevation or depression seen. Baseline troponin was 23. CT abdomen pelvis showed esophagitis. Chest x-ray showed no acute findings. Lactic acid pending, serum ketone pending and ABG showed metabolic acidosis with pH of 7.24 and HCO3 of 10.9. Patient was given 2 L of IV fluids, Reglan, calcium gluconate, 10 units of insulin and some morphine for pain. I then spoke with Dr. Mejia about patient case and his need for admission. Dr. Mejia agreed and he will be taking over patient care, speaking with hospitalist and getting patient admitted. Lab Data: Attestation: I reviewed the patient's lab results. Labs: Lab Results 11/16/20 11/16/20 11/16/20 Range/Units 17:47 17:47 17:47 WBC 16.9 H (4.0-10.0) 10^3/ uL RBC 5.97 H (4.1-5.3) 10^6/u L Hgb 16.1 (11.7-16.6) g/dL Hct 49.7 (42.0-52.0) % MCV 83.2 (80-94) fl MCH 27.0 L (28.0-34.0) pg MCHC 32.4 (30.0-36.0) g/dL RDW 13.1 (12.1-15.1) % Plt Count 387 (130-400) 10^3/c mm MPV 10.4 (7.4-10.4) fL Neut % (Auto) 93.0 % Lymph % (Auto) 4.4 % [place] % (Auto) 1.8 % Eos % (Auto) 0.1 % Baso % (Auto) 0.4 % Neut # (Auto) 15.76 H (1.8-7.7) 10^3/u L Lymph # (Auto) 0.7 L (0.8-4.8) 10^3/u L [place] # (Auto) 0.3 (0.2-0.9) 10^3/u L Eos # (Auto) 0.0 (0.0-0.8) 10^3/u L Baso # (Auto) 0.1 (0.0-0.1) 10^3/u L Nucleated RBC % (a uto) 0 % Nucleated RBCs # 0.0 /100WBC Specimen Type Sample Site ABG pH (7.35-7.45) ABG pCO2 (35-45) mmHg ABG pO2 (80.0-100.0) mmH g ABG HCO3 (22-26) mmol/L ABG O2 Saturation ABG Base Excess (-2.0-2.0) mmol/ L Abel Test A-a O2 Gradient (5-10) mmHg Hematocrit (42-52) % Hgb O2 Saturation (95-100) % Carboxyhemoglobin (0.4-20.1) %THgb Methemoglobin (0.4-1.5) % Total Hemoglobin (14-18) g/dL Ionized Calcium (1.1-1.4) mmol/L O2 Delivery Device FiO2 % Medical Office Professional Instructor ID Sodium 128 L (136-145) mmol/L Potassium 6.2 H (3.5-5.1) mmol/L Chloride 83 L (98-107) mmol/L Carbon Dioxide 14 L (22-29) mmol/L Anion Gap 37.2 H (5-19) BUN 35 H (6-20) mg/dL Creatinine 1.5 H (0.7-1.2) mg/dL GFR Calculation 48.8 L (90-130) mL/min Glucose 575 H* (65-115) mg/dL Calculated Osmolal ity 300 H (285-295) mOsm/k g Lactic Acid (0.5-2.2) mmol/L Calcium 9.6 (8.5-10.5) mg/dL Total Bilirubin 1.1 (0.15-1.2) mg/dL AST 27 (0-40) U/L ALT 35 (0-41) U/L Alkaline Phosphata se 100 (40-130) IU/L Troponin T Baselin e 23 H (0-15) ng/L Total Protein 7.8 (6.6-8.7) g/dL Albumin 4.6 (3.5-5.2) g/dL Globulin 3.2 (1.3-4.6) g/dL Lipase 12 L (13-60) U/L Urine Color (Yellow) Urine Appearance (CLEAR) Urine pH (5-7) Ur Specific Gravit y (1.005-1.030) Urine Protein (Negative) Urine Glucose (UA) (Normal) Urine Ketones (Negative) Urine Blood (Negative) Urine Nitrate (Negative) Urine Bilirubin (Negative) Urine Urobilinogen (Negative) mg/dL Ur Leukocyte Hayde ase (Negative) Urine RBC Urine WBC Ur Squamous Epith Cells (0-5) /hpf Amorphous Sediment Urine Bacteria (NONE) /hpf 11/16/20 11/16/20 11/16/20 Range/Units 17:47 19:23 19:50 WBC (4.0-10.0) 10^3/ uL RBC (4.1-5.3) 10^6/u L Hgb (11.7-16.6) g/dL Hct (42.0-52.0) % MCV (80-94) fl MCH (28.0-34.0) pg MCHC (30.0-36.0) g/dL RDW (12.1-15.1) % Plt Count (130-400) 10^3/c mm MPV (7.4-10.4) fL Neut % (Auto) % Lymph % (Auto) % [place] % (Auto) % Eos % (Auto) % Baso % (Auto) % Neut # (Auto) (1.8-7.7) 10^3/u L Lymph # (Auto) (0.8-4.8) 10^3/u L [place] # (Auto) (0.2-0.9) 10^3/u L Eos # (Auto) (0.0-0.8) 10^3/u L Baso # (Auto) (0.0-0.1) 10^3/u L Nucleated RBC % (a uto) % Nucleated RBCs # /100WBC Specimen Type Arterial Sample Site Radial, right ABG pH 7.24 L (7.35-7.45) ABG pCO2 25.4 L (35-45) mmHg ABG pO2 90.9 (80.0-100.0) mmH g ABG HCO3 10.9 L (22-26) mmol/L ABG O2 Saturation 96.6 ABG Base Excess -14.7 L (-2.0-2.0) mmol/ L Abel Test Pos A-a O2 Gradient 3.3 L (5-10) mmHg Hematocrit 46.1 (42-52) % Hgb O2 Saturation 94.5 L (95-100) % Carboxyhemoglobin 0.8 (0.4-20.1) %THgb Methemoglobin 1.3 (0.4-1.5) % Total Hemoglobin 15.0 (14-18) g/dL Ionized Calcium 1.1 (1.1-1.4) mmol/L O2 Delivery Device Room air FiO2 21.0 % Medical Office Professional Instructor ID Harkr Sodium 130.0 L (136-145) mmol/L Potassium 5.6 H (3.5-5.1) mmol/L Chloride (98-107) mmol/L Carbon Dioxide (22-29) mmol/L Anion Gap (5-19) BUN (6-20) mg/dL Creatinine (0.7-1.2) mg/dL GFR Calculation (90-130) mL/min Glucose 681.0 H (65-115) mg/dL Calculated Osmolal ity (285-295) mOsm/k g Lactic Acid 4.4 H* (0.5-2.2) mmol/L Calcium (8.5-10.5) mg/dL Total Bilirubin (0.15-1.2) mg/dL AST (0-40) U/L ALT (0-41) U/L Alkaline Phosphata se (40-130) IU/L Troponin T Baselin e (0-15) ng/L Total Protein (6.6-8.7) g/dL Albumin (3.5-5.2) g/dL Globulin (1.3-4.6) g/dL Lipase (13-60) U/L Urine Color Straw (Yellow) Urine Appearance Clear (CLEAR) Urine pH 5 (5-7) Ur Specific Gravit y 1.015 (1.005-1.030) Urine Protein Neg (Negative) Urine Glucose (UA) 4+ H (Normal) Urine Ketones 3+ H (Negative) Urine Blood Neg (Negative) Urine Nitrate Negative (Negative) Urine Bilirubin Neg (Negative) Urine Urobilinogen Norm (Negative) mg/dL Ur Leukocyte Hayde ase Negative (Negative) Urine RBC Not Reportable Urine WBC Not Reportable Ur Squamous Epith Cells 0-4 H (0-5) /hpf Amorphous Sediment Not Reportable Urine Bacteria Trace (NONE) /hpf Imaging Data^: CXR: Attestation: I personally reviewed and interpreted this imaging study as follows: Radiologist's impression: [address] [address] XRay Report Signed Patient: Timothy Correia Unit #: [id number] : 1965 Age/Sex: 55 / M ADM Date: 11/16/20 Loc: ER Room/Bed: Attending Dr: Ordering Provider/Ordering MD: Josh Cazares Date of Service: 11/16/20 Procedure(s): XR chest 1V portable [id number] Accession Number(s): [id number] Report Number: [id number] PROCEDURE INFORMATION: Exam: XR Chest Exam date and time: 11/16/2020 5:15 PM Age: 55 years old Clinical indication: Other: Coughing blood; Additional info: Left rib pain TECHNIQUE: Imaging protocol: XR of the chest. Views: 1 view. COMPARISON: CR XR ribs LT mn 3V w CXR1V [id number] 11/13/2020 9:45 AM FINDINGS: Lungs: Unremarkable. No consolidation. Pleural spaces: Unremarkable. No pleural effusion. No pneumothorax. Heart/Mediastinum: There is cardiomegaly. Bones/joints: No new abnormality compared to the prior exam. Previously visualized fractures of the posterior left 8th through 10th ribs are visualized. XR/XR chest 1V portable [id number] IMPRESSION: No acute findings. Dictated By: Radha Vogel Signed By: Radha Vogel Signed Date/Time: 11/16/201752 DD/ 50 CT Abd/Pel: Attestation: I personally reviewed and interpreted this imaging study as follows: Radiologist's impression: [address] [id number] Scan ReportSigned Patient: Timothy Correia RUngail #: [id number]: [id number]#:[id number]/Sex: 55 / MADM Date: 11/16/20Loc: ERRoom/Bed:Attending Dr: Ordering Provider/Ordering MD: Josh Cazares Date of Service: 11/16/20 Procedure(s): CT abdomen pelvis w con* [id number] Accession Number(s): [id number] Report Number: [id number] PROCEDURE INFORMATION: Exam: CT Abdomen And Pelvis With Contrast Exam date and time: 11/16/2020 6:21 PM Age: 55 years old Clinical indication: Abdominal pain; Generalized; Prior surgery; Surgery date: 6+ months; Surgery type: Choley; Additional info: Luq abdominal pain, n/v TECHNIQUE: Imaging protocol: Computed tomography of the abdomen and pelvis with contrast. Radiation optimization: All CT scans at this facility use at least one of these dose optimization techniques: automated exposure control; mA and/or kV adjustment per patient size (includes targeted exams where dose is matched to clinical indication); or iterative reconstruction. Contrast material: VISI 320; Contrast volume: 95 ml; Contrast route: INTRAVENOUS (IV); COMPARISON: CT abdomen pelvis w con* [id number] 02/27/2020 8:53 PM RADIATION DOSE METRICS: Total DLP (mGy-cm): 1904.69 FINDINGS: Heart: The heart is enlarged. Mediastinal space: A small hiatal hernia is present. There is mild wall thickening of the distal esophagus concerning for esophagitis. Liver: There is a diffuse decrease in hepatic parenchymal density, consistent with fatty infiltration. Gallbladder and bile ducts: There has been a cholecystectomy. There is no common bile duct dilation. Pancreas: The pancreas is atrophic but otherwise unremarkable in appearance. Spleen: The spleen is normal. Adrenal glands: Normal. No mass. Kidneys and ureters: There is a probable right extrarenal pelvis. There is no evidence of hydronephrosis. There is no evidence of renal calcifications. There are multiple renal hypodensities that cannot be further characterized on the current examination. Stomach and bowel: There is moderately excessive colonic stool content. The loops of small bowel have an appropriate appearance. There is no evidence of colitis/diverticulitis. Appendix: A normal appendix is identified. Intraperitoneal space: There is a mild inflammatory stranding throughout the central mesentery as well. These findings are nonspecific, and most likely represent a viral adenitis. This jorgito mesentery can be an early manifestation of mesenteric neoplasm, however, and a follow up examination is recommended as clinically warranted. Vasculature: Unremarkable.No abdominal aortic aneurysm. Lymph nodes: There are multiple nonspecific nonpathologic but prominent lymph nodes in the mesentery. There are no mesenteric lymph nodes of pathologic dimensions. Urinary bladder: The bladder is normal. Reproductive: Unremarkable as visualized. Bones/joints: There is osteopenia. Chronic appearing mild anterior wedging deformity is noted at T9 and T10. No acute bony abnormality. Severe endplate degenerative changes are noted especially at L5-S1. Soft tissues: There is a fat-containing umbilical hernia. There is mild thickening of the skin surface with induration of the subcutaneous fat left upper to mid abdominal wall concerning for contusion or mild cellulitis without fluid collection or abscess. There is small bilateral fat filled inguinal hernias. CT/CT abdomen pelvis w con* [id number] IMPRESSION: 1. There is mild wall thickening of the distal esophagus concerning for esophagitis. 2. Multiple subcentimeter mesenteric lymph nodes with mild haziness of the adjacent mesenteric fat concerning for mild viral adenitis. No pathologic adenopathy. 3. There is mild thickening of the skin surface with induration of the subcutaneous fat left upper to mid abdominal wall concerning for contusion or mild cellulitis without fluid collection or abscess. Radiation Dose CTDIVOL = (mGy): DLP = 1904.69 (mGy-cm) Dictated By:Melissa Vogeligned By:Sloane Vogel Date/Time:11/16/203DD/ 00 EKG Data^: EKG 1: Attestation: I personally reviewed and interpreted this EKG as follows: EKG interpretation date: 11/16/20 Interpretation: Sinus tachycardia, 104 bpm, no ST segment elevation or depression seen. Spiked T waves present. Discharge Plan Discharge Patient Disposition: Admitted As Inpatient Admit Provider: Lorelei Grace Condition: Stable Discharge Diet: Diabetic Discharge Activity: Resume usual activity Sign Out Sign Out Data: Patient Sign Out occurred on 11/16/20 at 19:46. Patient's care was discussed, and care was transferred from to Mac Mejia MD. Coding Level of Care Code ED Barn Operator for Chg Fwd Exam Comprehensive Documented by User: Mac Mejia MD 11/18/20 16:29 HPI - Nausea/Vomiting/Diarrhea General: Chief complaint: Nausea/Vomiting/Diarrhea Stated complaint: Throwing up Bile/Blood Time Seen by Provider: 11/16/20 17:01 PFS ED PFSH: Medical History (Updated 11/16/20 @ 21:58 by Lorelei Grace MD) Chronic kidney disease COVID-19 vaccine administered elarm, second dose in April 2020 Diabetes mellitus type 2, insulin dependent Dyslipidemia History of diabetic ulcer of foot HTN (hypertension) Surgical History (Updated 11/16/20 @ 20:27 by Lorelei Grace MD) History of Achilles tendon repair (~2017) History of amputation of toe (~2017) History of amputation of toe (~2018) several History of hand surgery History of transmetatarsal amputation of right foot (~2017) Hx of cholecystectomy (~2004) Hx of sinus surgery Family History (Updated 11/16/20 @ 21:54 by Lorelei Grace MD) Father CAD (coronary artery disease) Heart attack at age 80 Denies family history of Cancer Social History (Updated 11/16/20 @ 21:54 by Lorelei Grace MD) Smoking and tobacco status: former smoker Second hand smoke exposure: No Alcohol intake: never Lives independently: Yes Marital status: Number of children: 2 Current occupational status: employed Current gender identity: Male Course ED course: Patient care handed off from Josh RUSHING. I have reviewed his above documentation and agree. I personally reperformed history, review of systems, and physical exam. Patient is in DKA. I reviewed prior treatments and ordered additional treatments including insulin drip. I personally spoke with the nurse regarding orders including plan to half rate of insulin drip once blood glucose reaches less than 250 and start D5 NS at that time.. I updated patient on plan of care. Patient was agreeable to be admitted. Hospitalist service contacted and agreed to admit the patient. Mac Mejia MD Emergency Medicine Vital Signs: Vital signs: Vital Signs Temperature 98.1 F 11/18/20 13:20 Pulse Rate 85 11/18/20 13:20 Respiratory Rate 16 11/18/20 13:20 Blood Pressure 109/68 11/18/20 13:20 Pulse Oximetry 99 11/18/20 13:20 MDM - Nausea/Vomiting/Diarrhea Lab Data: Labs: Lab Results 11/16/20 11/16/20 11/16/20 Range/Units 17:47 17:47 17:47 WBC 16.9 H (4.0-10.0) 10^3/ uL RBC 5.97 H (4.1-5.3) 10^6/u L Hgb 16.1 (11.7-16.6) g/dL Hct 49.7 (42.0-52.0) % MCV 83.2 (80-94) fl MCH 27.0 L (28.0-34.0) pg MCHC 32.4 (30.0-36.0) g/dL RDW 13.1 (12.1-15.1) % Plt Count 387 (130-400) 10^3/c mm MPV 10.4 (7.4-10.4) fL Neut % (Auto) 93.0 % Lymph % (Auto) 4.4 % [place] % (Auto) 1.8 % Eos % (Auto) 0.1 % Baso % (Auto) 0.4 % Neut # (Auto) 15.76 H (1.8-7.7) 10^3/u L Lymph # (Auto) 0.7 L (0.8-4.8) 10^3/u L [place] # (Auto) 0.3 (0.2-0.9) 10^3/u L Eos # (Auto) 0.0 (0.0-0.8) 10^3/u L Baso # (Auto) 0.1 (0.0-0.1) 10^3/u L Nucleated RBC % (a uto) 0 % Nucleated RBCs # 0.0 /100WBC Specimen Type Sample Site ABG pH (7.35-7.45) ABG pCO2 (35-45) mmHg ABG pO2 (80.0-100.0) mmH g ABG HCO3 (22-26) mmol/L ABG O2 Saturation ABG Base Excess (-2.0-2.0) mmol/ L Abel Test A-a O2 Gradient (5-10) mmHg Hematocrit (42-52) % Hgb O2 Saturation (95-100) % Carboxyhemoglobin (0.4-20.1) %THgb Methemoglobin (0.4-1.5) % Total Hemoglobin (14-18) g/dL Ionized Calcium (1.1-1.4) mmol/L O2 Delivery Device FiO2 % Medical Office Professional Instructor ID Sodium 128 L (136-145) mmol/L Potassium 6.2 H (3.5-5.1) mmol/L Chloride 83 L (98-107) mmol/L Carbon Dioxide 14 L (22-29) mmol/L Anion Gap 37.2 H (5-19) BUN 35 H (6-20) mg/dL Creatinine 1.5 H (0.7-1.2) mg/dL GFR Calculation 48.8 L (90-130) mL/min Glucose 575 H* (65-115) mg/dL Calculated Osmolal ity 300 H (285-295) mOsm/k g Lactic Acid (0.5-2.2) mmol/L Calcium 9.6 (8.5-10.5) mg/dL Total Bilirubin 1.1 (0.15-1.2) mg/dL AST 27 (0-40) U/L ALT 35 (0-41) U/L Alkaline Phosphata se 100 (40-130) IU/L Troponin T Baselin e 23 H (0-15) ng/L Total Protein 7.8 (6.6-8.7) g/dL Albumin 4.6 (3.5-5.2) g/dL Globulin 3.2 (1.3-4.6) g/dL Lipase 12 L (13-60) U/L Urine Color (Yellow) Urine Appearance (CLEAR) Urine pH (5-7) Ur Specific Gravit y (1.005-1.030) Urine Protein (Negative) Urine Glucose (UA) (Normal) Urine Ketones (Negative) Urine Blood (Negative) Urine Nitrate (Negative) Urine Bilirubin (Negative) Urine Urobilinogen (Negative) mg/dL Ur Leukocyte Hayde ase (Negative) Urine RBC Urine WBC Ur Squamous Epith Cells (0-5) /hpf Amorphous Sediment Urine Bacteria (NONE) /hpf 11/16/20 11/16/20 11/16/20 Range/Units 17:47 19:23 19:50 WBC (4.0-10.0) 10^3/ uL RBC (4.1-5.3) 10^6/u L Hgb (11.7-16.6) g/dL Hct (42.0-52.0) % MCV (80-94) fl MCH (28.0-34.0) pg MCHC (30.0-36.0) g/dL RDW (12.1-15.1) % Plt Count (130-400) 10^3/c mm MPV (7.4-10.4) fL Neut % (Auto) % Lymph % (Auto) % [place] % (Auto) % Eos % (Auto) % Baso % (Auto) % Neut # (Auto) (1.8-7.7) 10^3/u L Lymph # (Auto) (0.8-4.8) 10^3/u L [place] # (Auto) (0.2-0.9) 10^3/u L Eos # (Auto) (0.0-0.8) 10^3/u L Baso # (Auto) (0.0-0.1) 10^3/u L Nucleated RBC % (a uto) % Nucleated RBCs # /100WBC Specimen Type Arterial Sample Site Radial, right ABG pH 7.24 L (7.35-7.45) ABG pCO2 25.4 L (35-45) mmHg ABG pO2 90.9 (80.0-100.0) mmH g ABG HCO3 10.9 L (22-26) mmol/L ABG O2 Saturation 96.6 ABG Base Excess -14.7 L (-2.0-2.0) mmol/ L Abel Test Pos A-a O2 Gradient 3.3 L (5-10) mmHg Hematocrit 46.1 (42-52) % Hgb O2 Saturation 94.5 L (95-100) % Carboxyhemoglobin 0.8 (0.4-20.1) %THgb Methemoglobin 1.3 (0.4-1.5) % Total Hemoglobin 15.0 (14-18) g/dL Ionized Calcium 1.1 (1.1-1.4) mmol/L O2 Delivery Device Room air FiO2 21.0 % Medical Office Professional Instructor ID Harkr Sodium 130.0 L (136-145) mmol/L Potassium 5.6 H (3.5-5.1) mmol/L Chloride (98-107) mmol/L Carbon Dioxide (22-29) mmol/L Anion Gap (5-19) BUN (6-20) mg/dL Creatinine (0.7-1.2) mg/dL GFR Calculation (90-130) mL/min Glucose 681.0 H (65-115) mg/dL Calculated Osmolal ity (285-295) mOsm/k g Lactic Acid 4.4 H* (0.5-2.2) mmol/L Calcium (8.5-10.5) mg/dL Total Bilirubin (0.15-1.2) mg/dL AST (0-40) U/L ALT (0-41) U/L Alkaline Phosphata se (40-130) IU/L Troponin T Baselin e (0-15) ng/L Total Protein (6.6-8.7) g/dL Albumin (3.5-5.2) g/dL Globulin (1.3-4.6) g/dL Lipase (13-60) U/L Urine Color Straw (Yellow) Urine Appearance Clear (CLEAR) Urine pH 5 (5-7) Ur Specific Gravit y 1.015 (1.005-1.030) Urine Protein Neg (Negative) Urine Glucose (UA) 4+ H (Normal) Urine Ketones 3+ H (Negative) Urine Blood Neg (Negative) Urine Nitrate Negative (Negative) Urine Bilirubin Neg (Negative) Urine Urobilinogen Norm (Negative) mg/dL Ur Leukocyte Hayde ase Negative (Negative) Urine RBC Not Reportable Urine WBC Not Reportable Ur Squamous Epith Cells 0-4 H (0-5) /hpf Amorphous Sediment Not Reportable Urine Bacteria Trace (NONE) /hpf Discharge Plan Discharge Patient Disposition: Admitted As Inpatient Admit Provider: Lorelei Grace Condition: Stable Discharge Diet: Diabetic Discharge Activity: Resume usual activity Sign Out Sign Out Data: Patient Sign Out occurred on 11/16/20 at 19:46. Patient's care was discussed, and care was transferred from to Mac Mejia MD. Coding Level of Care Code ED Barn Operator for g Fwd Exam Comprehensive
--- NOTE | 2020-11-16 17:25 | ECG_ITS ---
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 Measurements Intervals [place] Rate: 105 P: 60 SD: 184 QRS: -22 QRSD: 114 T: 50 QT: 359 QTc: 475 Interpretive Statements SINUS TACHYCARDIA BORDERLINE LEFT AXIS DEVIATION [QRS AXIS < -20] MODERATE INTRAVENTRICULAR CONDUCTION DELAY [110+ ms QRS DURATION] TALL T-WAVES, CONSIDER HYPERKALEMIA Compared to ECG 06/28/2017 07:35:50 Intraventricular conduction delay now present Sinus rhythm no longer present Electronically Signed On 11-17-2020 8:55:48 CDT by Keila Rai M.D. [id number]
[2020-11-16] MEDS: metoclopramide 5 mg/mL SDV 2 mL 10 MG IVP (18:01)
[2020-11-16] MEDS: sodium chloride 0.9% 1,000 ML 999 ML IV ×2 (18:01→19:10)
[2020-11-16] MEDS: morphine 4 mg/mL SDV 1 mL IVP ×2 (18:01→20:43)
[2020-11-16 18:20] LABS: Basophils # 0.1 10^3/uL (0.0-0.1); Basophils % 0.4 %; Eosinophils % 0.1 %; Hematocrit 49.7 % (42.0-52.0); Hemoglobin 16.1 g/dL (11.7-16.6); Lymphocytes # 0.7 10^3/uL (0.8-4.8); Lymphocytes % 4.4 %; Mean Corpuscular HGB Conc 32.4 g/dL (30.0-36.0); Mean Corpuscular Volume 83.2 fl (80-94); Mean Platelet Volume 10.4 fL (7.4-10.4); Monocytes # 0.3 10^3/uL (0.2-0.9); Monocytes % 1.8 %; Neutrophils # 15.76 10^3/uL (1.8-7.7); Nucleated Red Blood Cells % 0 %; Platelet Count 387 10^3/cmm (130-400); Red Blood Count 5.97 10^6/uL (4.1-5.3); Red Cell Distribution Width 13.1 % (12.1-15.1); White Blood Count 16.9 10^3/uL (4.0-10.0)
--- NOTE | 2020-11-16 18:21 | CTR_ITS ---
PROCEDURE INFORMATION: Exam: CT Abdomen And Pelvis With Contrast Exam date and time: 11/16/2020 6:21 PM Age: 55 years old Clinical indication: Abdominal pain; Generalized; Prior surgery; Surgery date: 6+ months; Surgery type: Choley; Additional info: Luq abdominal pain, n/v TECHNIQUE: Imaging protocol: Computed tomography of the abdomen and pelvis with contrast. Radiation optimization: All CT scans at this facility use at least one of these dose optimization techniques: automated exposure control; mA and/or kV adjustment per patient size (includes targeted exams where dose is matched to clinical indication); or iterative reconstruction. Contrast material: VISI 320; Contrast volume: 95 ml; Contrast route: INTRAVENOUS (IV); COMPARISON: CT abdomen pelvis w con* [id number] 02/27/2020 8:53 PM RADIATION DOSE METRICS: Total DLP (mGy-cm): 1904.69 FINDINGS: Heart: The heart is enlarged. Mediastinal space: A small hiatal hernia is present. There is mild wall thickening of the distal esophagus concerning for esophagitis. Liver: There is a diffuse decrease in hepatic parenchymal density, consistent with fatty infiltration. Gallbladder and bile ducts: There has been a cholecystectomy. There is no common bile duct dilation. Pancreas: The pancreas is atrophic but otherwise unremarkable in appearance. Spleen: The spleen is normal. Adrenal glands: Normal. No mass. Kidneys and ureters: There is a probable right extrarenal pelvis. There is no evidence of hydronephrosis. There is no evidence of renal calcifications. There are multiple renal hypodensities that cannot be further characterized on the current examination. Stomach and bowel: There is moderately excessive colonic stool content. The loops of small bowel have an appropriate appearance. There is no evidence of colitis/diverticulitis. Appendix: A normal appendix is identified. Intraperitoneal space: There is a mild inflammatory stranding throughout the central mesentery as well. These findings are nonspecific, and most likely represent a viral adenitis. This jorgito mesentery can be an early manifestation of mesenteric neoplasm, however, and a follow up examination is recommended as clinically warranted. Vasculature: Unremarkable.No abdominal aortic aneurysm. Lymph nodes: There are multiple nonspecific nonpathologic but prominent lymph nodes in the mesentery. There are no mesenteric lymph nodes of pathologic dimensions. Urinary bladder: The bladder is normal. Reproductive: Unremarkable as visualized. Bones/joints: There is osteopenia. Chronic appearing mild anterior wedging deformity is noted at T9 and T10. No acute bony abnormality. Severe endplate degenerative changes are noted especially at L5-S1. Soft tissues: There is a fat-containing umbilical hernia. There is mild thickening of the skin surface with induration of the subcutaneous fat left upper to mid abdominal wall concerning for contusion or mild cellulitis without fluid collection or abscess. There is small bilateral fat filled inguinal hernias. CT/CT abdomen pelvis w con* [id number] IMPRESSION: 1. There is mild wall thickening of the distal esophagus concerning for esophagitis. 2. Multiple subcentimeter mesenteric lymph nodes with mild haziness of the adjacent mesenteric fat concerning for mild viral adenitis. No pathologic adenopathy. 3. There is mild thickening of the skin surface with induration of the subcutaneous fat left upper to mid abdominal wall concerning for contusion or mild cellulitis without fluid collection or abscess. Radiation Dose CTDIVOL = (mGy): DLP = 1904.69 (mGy-cm)
[2020-11-16 18:34] LABS: Troponin(5th) Baseline 23 ng/L (0-15)
[2020-11-16 18:35] LABS: Alanine Aminotransferase 35 U/L (0-41); Albumin Level 4.6 g/dL (3.5-5.2); Alkaline Phosphatase 100 IU/L (40-130); Anion Gap 37.2 (5-19); Aspartate Amino Transferase 27 U/L (0-40); Blood Urea Nitrogen 35 mg/dL (6-20); Calcium 9.6 mg/dL (8.5-10.5); Carbon Dioxide 14 mmol/L (22-29); Chloride 83 mmol/L (98-107); Globulin 3.2 g/dL (1.3-4.6); Glomerular Filtration Rate 48.8 mL/min (90-130); Lipase 12 U/L (13-60); Osmolality Calculated 300 mOsm/kg (285-295); Potassium 6.2 mmol/L (3.5-5.1); Sodium 128 mmol/L (136-145); Total Bilirubin 1.1 mg/dL (0.15-1.2); Total Protein 7.8 g/dL (6.6-8.7)
[2020-11-16 18:40] LABS: Glucose 575 mg/dL (65-115)
[2020-11-16] MEDS: iodixanol 320 mg/mL 100mL Btl IV (18:51)
[2020-11-16] MEDS: insulin regular-human 100 units/1 mL 10 UNIT IVP (19:10)
[2020-11-16 19:24] LABS: Bilirubin Urine Neg (Negative); Blood Urine Neg (Negative); Glucose Urine UA 4+ (Normal); Ketones Urine 3+ (Negative); Leukocyte Esterase Urine Negative (Negative); Nitrate Urine Negative (Negative); Protein Urine Neg (Negative); Specific Gravity, Urine 1.015 (1.005-1.030); Urine Appearance Clear (CLEAR); Urine Color Straw (Yellow); Urobilinogen Urine Norm (Negative); pH Urine 5 (5-7)
[2020-11-16 19:33] LABS: Add Urine Culture? No; Bacteria Urine TRACE /hpf; Squamous Epithelial Cell Urine 0-4 /hpf (0-5)
[2020-11-16 19:34] LABS: ABG PCO2 25.4 mmHg (35-45); ABG PH Result 7.24 (7.35-7.45); Alveolar-Arterial Oxygen Gradi 3.3 mmHg (5-10); Arterial Blood Gas Hematocrit 46.1 % (42-52); Base Excess ABG -14.7 mmol/L (-2.0-2.0); Blood Gas Allen Test Pos; Blood Gas Operator Identificat HARKR; Blood Gas Sample Site Radial, right; Blood Gas Sample Type Arterial; Carboxyhemoglobin 0.8 %THgb (0.4-20.1); HCO3 ABG 10.9 mmol/L (22-26); HGB O2 Sat 94.5 % (95-100); Ionized Calcium Level - ABG 1.1 mmol/L (1.1-1.4); Methemoglobin 1.3 % (0.4-1.5); Oxygen Device ROOM AIR; Oxygen Saturation ABG 96.6; PO2 ABG 90.9 mmHg (80.0-100.0); Potassium Level - ABG 5.6 mmol/L (3.5-5.0)
--- NOTE | 2020-11-16 20:14 | P.HP_ITS ---
Providers/Chief Complaint Admitting Physician: Lorelei Grace MD Primary Care Provider: Zahida Baldwin MD Chief Complaint: Vomiting, abnormal blood sugars History of Present Illness Timothy Correia is a 55 year old male with a history of type 2 diabetes mellitus who presented to the emergency room with nausea, vomiting, left-sided abdominal pain and left-sided chest pain. He had a fall around November 09. After that fall he was having significant left-sided chest pain. He has been seen in the emergency room on the as well as 13 November. He has known left-sided rib fractures posteriorly 8 9 and 10, possibly 11th that are mildly displaced from imaging of the ribs done on the . He had been given prescription for some hydrocodone. Narcotics generally constipate him so he did take some MiraLAX with this. He reports some bowel movement but not his usual pattern. He has not had much of an appetite and reports that he has really not been eating much of anything. Yesterday his blood sugars in the morning were in the sixties. By the afternoon sugars were well over 300. He took some insulin, though less than his usual dosage, because he not been eating and and had the low blood sugar. Today he felt worse and the nausea and vomiting would not stop so he came in for evaluation. He was identified as being in diabetic ketoacidosis. He has been trying to set up right rather than lying down flat. He admits to difficulty taking in deep breath because of the rib pain. Any kind of movement exacerbates the pain. Gets short of breath at times because of the severity of the pain. No cough. No hemoptysis. Denies upper respiratory symptoms or fever. Has not had any pain with urination. Emesis has been bilious in nature. No hematemesis. CT of the abdomen and pelvis showed some esophageal thickening and multiple subcentimeter mesenteric lymph nodes concerning for possible viral adenitis although no pathologic adenopathy was identified. Some abdominal wall skin thickening was also noted without fluid collection or abscess. Potassium was at 6.2. He was given insulin bolus and started on an insulin drip. He received some IV fluids. He is being admitted for further care. He does have a history of DKA but the last episode was 5 years ago and 7 years ago. Both of those episodes were associated with acute illness, 1 being influenza and another being related to gallbladder process that led to cholecystectomy. Review of Systems Const: Reports: change in appetite and malaise; Denies: fever(s) or chills Eyes: Denies: change in vision ENMT: Reports: dry mouth; Denies: throat pain or nasal congestion Card: Reports: orthopnea and other (Has left-sided rib cage pain but denies other sensation of chest pain); Denies: palpitations or edema Resp: Reports: dyspnea, pain on inspiration and other (Coughing after vomiting only, mild, pain with cough); Denies: change in phlegm color or hemoptysis GI: Reports: abdominal pain (Left-sided upper and lower quadrants), nausea, vomiting, constipation and GI cramping; Denies: hematemesis, coffee ground emesis, diarrhea, hematochezia or melena : Reports: oliguria; Denies: difficulty urinating Musc: Denies: joint swelling, joint redness or joint warmth Skin/Breast: Denies: rash or sores (Denies any foot lesions) Neuro: Reports: numbness in extremities; Denies: headache(s), weakness in extremities or difficulty walking Kit/Lymph: Denies: easy bruising or easy bleeding Medications/Allergies Home Medications Medication Instructions Recorded Confirmed Last Taken Type aspirin 325 mg tablet,delayed 325 mg PO DAILY 05/03/19 10/17/20 Unknown History release amlodipine 10 mg tablet 10 mg PO DAILY #30 tab 11/08/19 10/17/20 Unknown Rx metoprolol succinate 50 mg 50 mg PO DAILY #30 tab 11/08/19 10/17/20 Unknown Rx tablet,extended release 24 hr olmesartan 40 mg tablet 40 mg PO DAILY #30 tab 11/08/19 10/17/20 Unknown Rx insulin aspart U-100 100 unit/mL 40 - 60 unit SUBCUT TID #15 ml 07/12/20 10/17/20 Unknown Rx (3 mL) subcutaneous pen celecoxib [Celebrex] 100 mg PO BID #20 cap 11/13/20 Unknown Rx hydrocodone-acetaminophen 1 tab PO TID PRN #21 tab 11/13/20 Unknown Rx insulin glargine [Lantus Solostar 90 unit SUBCUT BEDTIME 11/16/20 11/16/20 11/15/20 History U-100 Insulin] Allergies Allergy/AdvReac Type Severity Reaction Status Date / Time metformin Allergy ADR-Diarrhe Verified 11/16/20 16:51 a Additional Medication Information I personally reviewed home medication list and medications received day of admission thus far. PFSH Acute PFSH: Medical History (Updated 11/16/20 @ 21:58 by Lorelei Grace MD) Chronic kidney disease COVID-19 vaccine administered [employer], second dose in April 2020 Diabetes mellitus type 2, insulin dependent Dyslipidemia History of diabetic ulcer of foot HTN (hypertension) Surgical History (Updated 11/16/20 @ 20:27 by Lorelei Grace MD) History of Achilles tendon repair (~2017) History of amputation of toe (~2016) History of amputation of toe (~2017) several History of hand surgery History of transmetatarsal amputation of right foot (~2017) Hx of cholecystectomy (~2004) Hx of sinus surgery Family History (Updated 11/16/20 @ 21:54 by Lorelei Grace MD) Father CAD (coronary artery disease) Heart attack at age 80 Denies family history of Cancer Social History (Updated 11/16/20 @ 21:54 by Lorelei Grace MD) Smoking and tobacco status: former smoker Second hand smoke exposure: No Alcohol intake: never Lives independently: Yes Marital status: Number of children: 2 Current occupational status: employed Current gender identity: Male Vitals/I&O/Wt Last Vital Signs Temp 97.9 F 11/16/20 19:16 Pulse 114 H 11/16/20 19:33 Resp 18 11/16/20 19:33 BP 147/60 11/16/20 19:33 Pulse Ox 98 11/16/20 19:16 Weight last 48 hrs Weight 145.15 kg Physical Exam Narrative: EXAM NARRATIVE: Constitutional: Awake and alert, ill-appearing but cooperative, not actively vomiting HEENT: Normocephalic, mild conjunctival and scleral injection, nasopharynx is clear, oropharynx with dry mucous membranes Neck: Large but supple Respiratory: Tachypneic but clear bilaterally Chest Wall: Tender to palpation posteriorly consistent with areas of known rib fractures 8, 9, 10, +/- 11, no crepitus Cardiovascular: Tachycardic, regular rhythm, no murmur Abdomen: Soft, tender left upper and lower quadrants without rebound or guarding, decreased bowel sounds Extremities: No pitting edema, right forefoot amputation Skin: No significant sores noted on visualized areas of skin of arms, legs and abdomen; no bruising noted to the left side of the chest or abdomen Neuro: Speech clear, face symmetric, handgrip equal Psych: Normal affect, able to communicate history appropriately Data : 11/16/20 17:47 11/16/20 17:47 Micro: Microbiology 11/16/20 17:47 Blood Culture - Preliminary Blood SPECIMEN COLLECTED 11/16/20 17:47 Blood Culture - Preliminary Blood SPECIMEN COLLECTED Other data: Laboratory Results WBC 16.9 10^3/uL (4.0-10.0) H 11/16/20 17:47 RBC 5.97 10^6/uL (4.1-5.3) H 11/16/20 17:47 Hgb 16.1 g/dL (11.7-16.6) 11/16/20 17:47 Hct 49.7 % (42.0-52.0) 11/16/20 17:47 MCV 83.2 fl (80-94) 11/16/20 17:47 MCH 27.0 pg (28.0-34.0) L 11/16/20 17:47 MCHC 32.4 g/dL (30.0-36.0) 11/16/20 17:47 RDW 13.1 % (12.1-15.1) 11/16/20 17:47 Plt Count 387 10^3/cmm (130-400) 11/16/20 17:47 MPV 10.4 fL (7.4-10.4) 11/16/20 17:47 Neut % (Auto) 93.0 % 11/16/20 17:47 Lymph % (Auto) 4.4 % 11/16/20 17:47 [place] % (Auto) 1.8 % 11/16/20 17:47 Eos % (Auto) 0.1 % 11/16/20 17:47 Baso % (Auto) 0.4 % 11/16/20 17:47 Neut # (Auto) 15.76 10^3/uL (1.8-7.7) H 11/16/20 17:47 Lymph # (Auto) 0.7 10^3/uL (0.8-4.8) L 11/16/20 17:47 [place] # (Auto) 0.3 10^3/uL (0.2-0.9) 11/16/20 17:47 Eos # (Auto) 0.0 10^3/uL (0.0-0.8) 11/16/20 17:47 Baso # (Auto) 0.1 10^3/uL (0.0-0.1) 11/16/20 17:47 Nucleated RBC % (auto) 0 % 11/16/20 17:47 Nucleated RBCs # 0.0 /100WBC 11/16/20 17:47 Specimen Type Arterial 11/16/20 19:23 Sample Site Radial, right 11/16/20 19:23 ABG pH 7.24 (7.35-7.45) L 11/16/20 19:23 ABG pCO2 25.4 mmHg (35-45) L 11/16/20 19:23 ABG pO2 90.9 mmHg (80.0-100.0) 11/16/20 19: ABG HCO3 10.9 mmol/L (22-26) L 11/16/20 19:23 ABG O2 Saturation 96.6 11/16/20 19:23 ABG Base Excess -14.7 mmol/L (-2.0-2.0) L 11/16/20 19:23 Abel Test Pos 11/16/20 19:23 A-a O2 Gradient 3.3 mmHg (5-10) L 11/16/20 19:23 Hematocrit 46.1 % (42-52) 11/16/20 19:23 Hgb O2 Saturation 94.5 % (95-100) L 11/16/20 19:23 Carboxyhemoglobin 0.8 %THgb (0.4-20.1) 11/16/20 19:23 Methemoglobin 1.3 % (0.4-1.5) 11/16/20 19:23 Total Hemoglobin 15.0 g/dL (14-18) 11/16/20 19:23 Sodium 130.0 mmol/L (131-143) L 11/16/20 19:23 Potassium 5.6 mmol/L (3.5-5.0) H 11/16/20 19:23 Glucose 681.0 mg/dL (70-115) H 11/16/20:23 Ionized Calcium 1.1 mmol/L (1.1-1.4) 11/16/20 19:23 O2 Delivery Device Room air 11/16/20 19:23 FiO2 21.0 % 11/16/20 19:23 Senior Research Scientist ID Marek 11/16/20 19:23 Sodium 128 mmol/L (136-145) L 11/16/20 17:47 Potassium 6.2 mmol/L (3.5-5.1) H 11/16/20 17:47 Chloride 83 mmol/L (98-107) L 11/16/20 17:47 Carbon Dioxide 14 mmol/L (22-29) L 11/16/20 17:47 Anion Gap 37.2 (5-19) H 11/16/20 17:47 BUN 35 mg/dL (6-20) H 11/16/20 17:47 Creatinine 1.5 mg/dL (0.7-1.2) H 11/16/20 17:47 GFR Calculation 48.8 mL/min (90-130) L 11/16/20 17:47 Glucose 575 mg/dL (65-115) H* 11/16/20 17:47 Calculated Osmolality 300 mOsm/kg (285-295) H 11/16/20 17:47 Calcium 9.6 mg/dL (8.5-10.5) 11/16/20 17:47 Total Bilirubin 1.1 mg/dL (0.15-1.2) 11/16/20 17:47 AST 27 U/L (0-40) 11/16/20 17:47 ALT 35 U/L (0-41) 11/16/20 17:47 Alkaline Phosphatase 100 IU/L (40-130) 11/16/20 17:47 Troponin T Baseline 23 ng/L (0-15) H 11/16/20 17:47 Total Protein 7.8 g/dL (6.6-8.7) 11/16/20 17:47 Albumin 4.6 g/dL (3.5-5.2) 11/16/20 17:47 Globulin 3.2 g/dL (1.3-4.6) 11/16/20 17:47 Lipase 12 U/L (13-60) L 11/16/20 17:47 Urine Color Straw (Yellow) 11/16/20 17:47 Urine Appearance Clear (CLEAR) 11/16/20 17:47 Urine pH 5 (5-7) 11/16/20 17:47 Ur Specific [place] 1.015 (1.005-1.030) 11/16/20 17:47 Urine Protein Neg (Negative) 11/16/20 17:47 Urine Glucose (UA) 4+ (Normal) H 11/16/20 17:47 Urine Ketones 3+ (Negative) H 11/16/20 17:47 Urine Blood Neg (Negative) 11/16/20 17:47 Urine Nitrate Negative (Negative) 11/16/20 17:47 Urine Bilirubin Neg (Negative) 11/16/20 17:47 Urine Urobilinogen Norm mg/dL (Negative) 11/16/20 17:47 Ur Leukocyte Esterase Negative (Negative) 11/16/20 17:47 Urine RBC Not Reportable 11/16/20 17:47 Urine WBC Not Reportable 11/16/20 17:47 Ur Squamous Epith Cells 0-4 /hpf (0-5) H 11/16/20 17:47 Amorphous Sediment Not Reportable 11/16/20 17:47 Urine Bacteria Trace /hpf (NONE) 11/16/20 17:47 Impressions Chest X-Ray 11/16/20 17:15 IMPRESSION: No acute findings. Abdomen/Pelvis CT 11/16/20 18:21 IMPRESSION: 1. There is mild wall thickening of the distal esophagus concerning for esophagitis. 2. Multiple subcentimeter mesenteric lymph nodes with mild haziness of the adjacent mesenteric fat concerning for mild viral adenitis. No pathologic adenopathy. 3. There is mild thickening of the skin surface with induration of the subcutaneous fat left upper to mid abdominal wall concerning for contusion or mild cellulitis without fluid collection or abscess. Radiation Dose CTDIVOL = (mGy): DLP = 1904.69 (mGy-cm) A&P Assessment and plan (1) DKA (diabetic ketoacidoses): Has associated electrolyte abnormalities including anion gap of 37, hyponatremia, hyperkalemia, leukocytosis along with GI symptoms. No obvious source of infection. Initial troponin is normal and EKG without acute ST segment changes. He has not been eating well and initially continue taking his insulin but after an episode of hypoglycemia yesterday did not take as much insulin and presents in DKA. Status: Acute Qualifiers: Diabetes mellitus type: type 2 Diabetes mellitus complication detail: without coma Qualified Code(s): E11.10 - Type 2 diabetes mellitus with ketoacidosis without coma (2) Multiple fractures of ribs of left side: Status: Acute Qualifiers: Encounter type: subsequent encounter Fracture type: closed Fracture healing: with routine healing Qualified Code(s): S22.42XD - Multiple fractures of ribs, left side, subsequent encounter for fracture with routine healing (3) HTN (hypertension): Status: Chronic Qualifiers: Hypertension type: essential hypertension Qualified Code(s): I10 - Essential (primary) hypertension (4) Chronic kidney disease: Baseline creatinine around 1.5 Status: Chronic Qualifiers: Chronic kidney disease stage: stage 3 (moderate) Chronic kidney disease stage 3 subtype: stage 3a (GFR 45-59) Qualified Code(s): N18.31 - Chronic kidney disease, stage 3a Additional A&P Information History of dyslipidemia, has been on Crestor in the past but does not appear to currently be Inpatient admission Insulin drip IV fluids Serial laboratory studies Address electrolytes as needed Hold Celebrex and ARB secondary to hyperkalemia currently Continue metoprolol Monitor blood pressures for need to add additional medications Serial cardiac enzymes and EKGs Changed to oxycodone oral for pain control along with adjuvant gabapentin to help with pain from his ribs Incentive spirometer Scheduled stool softeners and laxative Monitor for signs and symptoms of infection that would necessitate initiation of antibiotic therapy Blood cultures were collected Check hemoglobin A1c and lipid panel PPI Lovenox for DVT prophylaxis Supportive care otherwise Plans were discussed with patient and he was given an opportunity to ask questions Anticipate discharge home with outpatient follow-up with primary care provider Full code Attestations Medical Necessity Statement*: Anticipated stay greater than two midnights in a gentleman presenting in di abetic ketoacidosis for the first time in quite a few years. Inciting event appears to be from not eating as well or taking usual amounts of insulin due to effects of narcotics and pain related to recent rib fractures although will continue to monitor for other nidus for DKA. Requiring insulin drip, aggressive IV fluids, adjustments to pain management and other care as noted above. At high risk of significant clinical decline without intervention and given anticipated ongoing need for pain control and issues related to this and his rib fractures will need monitored after resolution of DKA to ensure no rapid recurrence Coding Level of Care Code Acute Boom Pump Operator for Chg Fwd Diagnoses DKA (diabetic ketoacidoses) E11.10 Diabetes mellitus type: type 2 Diabetes mellitus complication detail: without coma Multiple fractures of ribs of left side S22.42XD Encounter type: subsequent encounter Fracture type: closed Fracture healing: with routine healing HTN (hypertension) I10 Hypertension type: essential hypertension Chronic kidney disease N18.31 Chronic kidney disease stage: stage 3 (moderate) Chronic kidney disease stage 3 subtype: stage 3a (GFR 45-59)
--- NOTE | 2020-11-16 20:23 | PC.NURSE ---
FSBS reads HI, retake FSBS reads 590, Dr Notified. Awaiting insulin drip from pharmacy.
[2020-11-16] MEDS: insulin regular-human 250 UNIT in sodium chloride 0.9% 250 ML 14.5 UNIT IV (21:00)
[2020-11-16 21:14] LABS: Glucose Point of Care > 600 mg/dL (70-110)
[2020-11-16 21:14] LABS: Glucose Point of Care 590 mg/dL (70-110)
--- NOTE | 2020-11-16 21:20 | PC.NURSE ---
Arrived on Unit Patient arrived in ICU at 2120 via stretcher. Patient belongings included wallet, glasses, phone, and clothing. Upon arrival insulin drip running at 14.5 ml/hour. After Blood glucose check being 586, insulin drip titrated to 16 ml/hour per insulin drip protocol.
[2020-11-16 21:30] LABS: Lactic Sepsis W/Reflex 4.4 mmol/L (0.5-2.2)
[2020-11-16 21:36] LABS: Troponin 5 2HR 23.79 ng/L (0-15); Troponin 5 2HR Delta 0.79 ABS# (0-10)
[2020-11-16 21:45] LABS: Reflex Lactate Order REFLEX LACTIC ORDERD
[2020-11-16 21:50] LABS: Glucose Point of Care 586 mg/dL (70-110)
[2020-11-16 21:55] LABS: Ketone (Acetest) Serum Positive (Negative)
[2020-11-16 22:05] LABS: Anion Gap 39.2 (5-19); Blood Urea Nitrogen 35 mg/dL (6-20); Calcium 9.7 mg/dL (8.5-10.5); Carbon Dioxide 13 mmol/L (22-29); Chloride 83 mmol/L (98-107); Glomerular Filtration Rate 48.8 mL/min (90-130); Magnesium 2.4 mg/dL (1.7-2.3); Osmolality Calculated 302 mOsm/kg (285-295); Phosphorus 4.1 mg/dL (2.5-4.5); Potassium 6.2 mmol/L (3.5-5.1); Sodium 129 mmol/L (136-145)
[2020-11-16] MEDS: enoxaparin 40 mg/0.4 mL Syringe SUBCUT (22:07)
[2020-11-16 22:10] LABS: Glucose 561 mg/dL (65-115)
[2020-11-16 23:10] LABS: Lactic Acid level (Lactate) 3.1 mmol/L (0.5-2.2)
[2020-11-16 23:13] LABS: Glucose Point of Care 452 mg/dL (70-110)
[2020-11-16] MEDS: sodium chloride 0.9% 1,000 ML 150 ML IV (23:15)
--- NOTE | 2020-11-16 23:20 | PC.NURSE ---
IV fluids IV 0.9% sodium chloride started at 150 ml/hour at 2315 due to lack of IV access. Fluids initialized following insertion of right forearm peripheral Iv and left upper arm peripheral iv.
--- NOTE | 2020-11-16 23:25 | ECG_ITS ---
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
[2020-11-17] VITALS (44 sets, daily range): BP systolic 113–225; BP diastolic 60–102; PULSE 68–95; RESP 9–23; TEMP 36.4–36.6; O2SAT 91–100
--- NOTE | 2020-11-17 00:13 | PC.NURSE ---
Pain Patient does not wish for pain medication at this time.
[2020-11-17 00:31] LABS: Glucose Point of Care 415 mg/dL (70-110)
[2020-11-17 00:59] LABS: Blood Urea Nitrogen 41 mg/dL (6-20); Calcium 8.8 mg/dL (8.5-10.5); Carbon Dioxide 17 mmol/L (22-29); Chloride 94 mmol/L (98-107); Glomerular Filtration Rate 42.2 mL/min (90-130); Glucose 403 mg/dL (65-115); Osmolality Calculated 299 mOsm/kg (285-295); Sodium 131 mmol/L (136-145)
[2020-11-17 01:02] LABS: Glucose Point of Care 417 mg/dL (70-110)
[2020-11-17 01:03] LABS: Anion Gap 25.1 (5-19); Potassium 5.1 mmol/L (3.5-5.1)
[2020-11-17 02:07] LABS: Glucose Point of Care 333 mg/dL (70-110)
[2020-11-17 03:04] LABS: Glucose Point of Care 237 mg/dL (70-110)
[2020-11-17] MEDS: oxyCODONE-APAP 5-325 mg Tablet 1 TAB PO (03:07)
[2020-11-17] MEDS: ondansetron 2 mg/ML SDV 2 mL 4 MG IVP (03:40)
[2020-11-17] MEDS: morphine 4 mg/mL SDV 1 mL IVP (03:46)
--- NOTE | 2020-11-17 03:50 | PC.NURSE ---
Pain Episode Patient reported pain level in ribs to be 8 out of ten on a 1-10 numeric scale; interventions included resting, darkening the room, decreasing stimuli, and administering 1 oxycodone tablet per PRN order. At 0332 Patient reported a decrease in pain to a level 5 out of ten. However, at around 0338, patient reported nausea and feeling like (he) would throw up, in addition to increased pain at a level of 8 out of ten. Zofran and Morphine administered per order along with alternate interventions continued. Following all interventions, patient rated pain to be at a tolerable level, 4 out of 10. No further nausea.
[2020-11-17 04:12] LABS: ABG PH Result 7.42 (7.35-7.45); Arterial Blood Gas Hematocrit 43.1 % (42-52); Base Excess ABG -0.5 mmol/L (-2.0-2.0); Blood Gas Operator Identificat HARKR; Blood Gas Sample Site Brachial, left; Blood Gas Sample Type Arterial; HCO3 ABG 23.5 mmol/L (22-26); Oxygen Device ROOM AIR; PO2 ABG 59.3 mmHg (80.0-100.0)
[2020-11-17] MEDS: dextrose 5%-sod chloride 0.45% 1,000 ML 150 ML IV ×2 (05:24→12:20)
[2020-11-17 05:33] LABS: Glucose Point of Care 157 mg/dL (70-110)
--- NOTE | 2020-11-17 05:53 | PC.NURSE ---
Nasal Cannula Respiratory therapist applied nasal cannula at 2 l/min due to ABG results.
[2020-11-17 06:06] LABS: Glucose Point of Care 119 mg/dL (70-110)
[2020-11-17 06:24] LABS: Glucose Point of Care 207 mg/dL (70-110)
[2020-11-17 07:04] LABS: Glucose Point of Care 110 mg/dL (70-110)
--- NOTE | 2020-11-17 07:17 | PC.NURSE ---
Shift Note Frequent safety and comfort rounds continue. Orders and/or nursing care completed as indicated. Patient monitored for response to intervention and treatment(s). Education provided includes blood glucose results and insulin titrations. Patient verbalized understanding.
[2020-11-17 08:00] LABS: Basophils # 0.1 10^3/uL (0.0-0.1); Basophils % 0.5 %; Eosinophils # 0.1 10^3/uL (0.0-0.8); Eosinophils % 0.6 %; Hematocrit 44.8 % (42.0-52.0); Hemoglobin 14.4 g/dL (11.7-16.6); Lymphocytes # 1.9 10^3/uL (0.8-4.8); Lymphocytes % 12.8 %; Mean Corpuscular HGB Conc 32.1 g/dL (30.0-36.0); Mean Corpuscular Volume 83.9 fl (80-94); Mean Platelet Volume 9.7 fL (7.4-10.4); Monocytes # 1.8 10^3/uL (0.2-0.9); Monocytes % 11.8 %; Neutrophils # 10.99 10^3/uL (1.8-7.7); Nucleated Red Blood Cells % 0 %; Platelet Count 285 10^3/cmm (130-400); Red Blood Count 5.34 10^6/uL (4.1-5.3); Red Cell Distribution Width 13.1 % (12.1-15.1); White Blood Count 14.9 10^3/uL (4.0-10.0)
[2020-11-17 08:26] LABS: Blood Urea Nitrogen 38 mg/dL (6-20); Calcium 8.7 mg/dL (8.5-10.5); Carbon Dioxide 21 mmol/L (22-29); Chloride 97 mmol/L (98-107); Glomerular Filtration Rate 45.3 mL/min (90-130); Glucose 106 mg/dL (65-115); Magnesium 2.4 mg/dL (1.7-2.3); Osmolality Calculated 283 mOsm/kg (285-295); Phosphorus 2.7 mg/dL (2.5-4.5); Sodium 132 mmol/L (136-145)
[2020-11-17 08:52] LABS: Creatinine Clr Calc Pharmacy 81.4098
[2020-11-17] MEDS: gabapentin 100 mg Capsule PO ×2 (10:14→17:57)
[2020-11-17] MEDS: docusate sodium 100 mg Capsule PO ×2 (10:14→17:57)
[2020-11-17] MEDS: metoprolol succinate ER (24 HR) 50 mg Tablet PO (10:14)
[2020-11-17] MEDS: pantoprazole 40 mg SDV IVP ×2 (10:14→20:08)
[2020-11-17] MEDS: HYDROmorphone 1 mg/mL INJ 1 mL 0.5 MG IVP ×4 (10:15→22:05)
[2020-11-17] MEDS: piperacillin-tazobactam 3.375 GM in sodium chloride 0.9% (plus) 50 ML IV ×2 (10:16→17:57)
[2020-11-17 10:23] LABS: Chol HDL Ratio 3.86 mg/dL (1.0-5.00); Cholesterol 139 mg/dL (0-200); HDL Cholesterol 36 mg/dL (60-100); LDL Cholesterol Calculated 79 mg/dL (50-129); LDL HDL Ratio 2.19 RATIO (0.00-3.22); Triglycerides 118 mg/dL (0-150)
[2020-11-17] MEDS: sucralfate 1 gm/10 mL Oral Liq UDC PO ×3 (10:25→20:12)
[2020-11-17 10:55] LABS: Estmated Average Glucose 189; Hemoglobin A1C 8.2 % (4.0-6.0)
[2020-11-17] MEDS: labetalol 5 mg/mL SDV 20mL 10 MG IVP ×3 (12:18→23:37)
[2020-11-17 14:55] LABS: Blood Urea Nitrogen 26 mg/dL (6-20); Calcium 8.9 mg/dL (8.5-10.5); Carbon Dioxide 24 mmol/L (22-29); Chloride 99 mmol/L (98-107); Glomerular Filtration Rate 52.8 mL/min (90-130); Glucose 100 mg/dL (65-115); Magnesium 2.1 mg/dL (1.7-2.3); Osmolality Calculated 285 mOsm/kg (285-295); Sodium 135 mmol/L (136-145)
[2020-11-17 15:05] LABS: Anion Gap 15.7 (5-19); Potassium 3.7 mmol/L (3.5-5.1)
--- NOTE | 2020-11-17 16:54 | P.PN_ITS ---
Subjective Subjective: Interval history: Patient was seen this morning, he has multiple complaints, he tells me that whenever he swallows pills, he gets abdominal burning sensation, pain in his left upper quadrant, he also was told overnight that he could eat, he is a bit upset that now I am telling him he cannot eat because he is in DKA, he tells me that he has not been able to eat over the last 4 days, he feels nauseated, no fevers, no chills, no diarrhea, he tells me that a few weeks ago, he fell 4 feet off the back of his truck, sustained multiple rib fractures on the left, since then he continues to have intractable pain, does complain of shortness of breath, and cough Vitals/I&O/Wt Last Vital Signs Temp 97.6 F 11/17/20 08:00 Pulse 68 11/17/20 15:00 Resp 15 11/17/20 15:00 BP 202/99 11/17/20 15:00 Pulse Ox 97 11/17/20 15:00 11/17/20 11/17/20 11/17/20 06:59 14:59 22:59 Intake Total 1567.566 / 0010.673 9548.208 / 1554.208 Output Total 1000 / 1000 Balance 567.566 / 718.214 3028.208 / 1554.208 Weight last 48 hrs Weight 142.428 kg Weight 140.614 kg Weight 145.15 kg Physical Exam Const: COMMON NORMALS: no acute distress and patient oriented x3 Neck/C-Spine: COMMON NORMALS: no JVD Chest: OTHER: Left chest wall tenderness Resp: COMMON NORMALS: normal respiratory effort, No retractions, No use of ac cessory muscles and clear to auscultation bilaterally AUSCULTATION: clear to auscultation bilaterally Cardio: COMMON NORMALS: no JVD, regular rate, regular rhythm, S1 normal heart sound present and S2 normal heart sound present RATE: regular rate RHYTHM: regular rhythm HEART SOUNDS: S1 normal heart sound present and S2 normal heart sound present GI: COMMON NORMALS: Normal to inspection, nondistended, normoactive bowel sounds present, Soft to palpation, non-tender and No hepatosplenomegaly present PALPATION: Yes Soft to palpation and Yes No hepatosplenomegaly present Extremity: COMMON NORMALS: no pedal edema Neuro: COMMON NORMALS: patient oriented x3 Psych: COMMON NORMALS: mental status grossly normal Data : 11/17/20 06:58 11/17/20 13:10 Micro: Microbiology 11/16/20 17:47 Blood Culture - Preliminary Blood SPECIMEN COLLECTED 11/16/20 17:47 Blood Culture - Preliminary Blood SPECIMEN COLLECTED A&P Assessment and plan (1) DKA (diabetic ketoacidoses): Has associated electrolyte abnormalities including anion gap of 37, hyponatremia, hyperkalemia, leukocytosis along with GI symptoms. No obvious source of infection. Initial troponin is normal and EKG without acute ST segment changes. He has not been eating well and initially continue taking his insulin but after an episode of hypoglycemia yesterday did not take as much insulin and presents in DKA. -A1c 8.2 -Currently anion gap 15, blood sugars less than 100, currently on D5 normal saline, potassium 3.7 -Switch to normal saline with 40 KCl -Repeat BMP at 5 PM -Transition to subcu insulin, 30 units 3 times daily with meals - with glargine 30 units every 12 hours -Based on blood sugars, repeat BMP will consider moving out of ICU Status: Acute Qualifiers: Diabetes mellitus type: type 2 Diabetes mellitus complication detail: without coma Qualified Code(s): E11.10 - Type 2 diabetes mellitus with ketoacidosis without coma (2) Multiple fractures of ribs of left side: -Complaints of shortness of breath, also with a vomiting episode -Switch to Dilaudid 0.5 mg every 4 hours as needed for pain -Start Zosyn for possible aspiration pneumonia -Phenergan for nausea Status: Acute Qualifiers: Encounter type: subsequent encounter Fracture healing: with routine healing Fracture type: closed Qualified Code(s): S22.42XD - Multiple fractures of ribs, left side, subsequent encounter for fracture with routine healing (3) HTN (hypertension): Status: Chronic Qualifiers: Hypertension type: essential hypertension Qualified Code(s): I10 - Essential (primary) hypertension (4) Chronic kidney disease: Baseline creatinine around 1.5, now 1.4 Status: Chronic Qualifiers: Chronic kidney disease stage: stage 3 (moderate) Chronic kidney disease stage 3 subtype: stage 3a (GFR 45-59) Qualified Code(s): N18.31 - Chronic kidney disease, stage 3a Additional A&P Information Does have a lot of complaint of indigestion, upper abdominal burning sensation, esophageal burning, continue Protonix 40 IV twice daily with Carafate, CAT scan does show esophagitis History of dyslipidemia, has been on Crestor in the past but does not appear to currently be CT scan shows possible esophagitis, has complaints of abdominal burning, will have patient follow-up with GI as outpatient for EGD CT scan shows multiple subcentimeter mesenteric lymph nodes with mild haziness of the adjacent mesenteric fat concerning for mild viral adenitis. No pathologic adenopathy. We will continue to clinically monitor NSTEMI, no complaints of chest pain, baseline troponin XX 3, 6-hour 20.5, EKG no acute ST-T wave changes, continue aspirin, continue statin Continue metoprolol Monitor blood pressures for need to add additional medications Incentive spirometer Scheduled stool softeners and laxative Blood cultures were collected PPI, Protonix 40 IV twice daily Lovenox for DVT prophylaxis Supportive care otherwise Plans were discussed with patient and he was given an opportunity to ask questions Anticipate discharge home with outpatient follow-up with primary care provider Full code Attestations Medical Necessity Statement*: Patient requires hospitalization for diabetic ketoacidosis, anion gap closed, will move ICU Coding Level of Care Code 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
[2020-11-17] MEDS: sodium chlor 0.9% + KCl 40 mEq 40 MEQ/1,000 ML BAG 75 MEQ IV (17:58)
[2020-11-17] MEDS: insulin glargine 100 units/1 mL 30 UNIT SUBCUT (17:59)
[2020-11-17 18:35] LABS: Anion Gap 17.2 (5-19); Blood Urea Nitrogen 28 mg/dL (6-20); Calcium 8.7 mg/dL (8.5-10.5); Carbon Dioxide 22 mmol/L (22-29); Chloride 95 mmol/L (98-107); Glomerular Filtration Rate 57.5 mL/min (90-130); Glucose 232 mg/dL (65-115); Magnesium 2.1 mg/dL (1.7-2.3); Osmolality Calculated 283 mOsm/kg (285-295); Phosphorus 2.9 mg/dL (2.5-4.5); Potassium 4.2 mmol/L (3.5-5.1); Sodium 130 mmol/L (136-145)
--- NOTE | 2020-11-17 19:10 | PC.NURSE ---
Shift Note: Pt anion gap n ow closed. Insulin gtt off at 1530. Pt now get set rate of insulin prior to meals and lantus BID> IV fluids changed to NS with KCL. Pt out of bed to bathroom twice today, no issues. Frequent safety and comfort rounds continue. Orders and/or nursing care completed as indicated. Patient monitored for response to intervention and treatment(s). 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 . Will continue to monitor.
[2020-11-17] MEDS: atorvastatin 40 mg Tablet PO (20:08)
[2020-11-17] MEDS: sennosides 8.6 mg Tablet 17.2 MG PO (20:08)
[2020-11-17] MEDS: enoxaparin 40 mg/0.4 mL Syringe SUBCUT (20:33)
[2020-11-17 22:07] LABS: Anion Gap 18.7 (5-19); Blood Urea Nitrogen 22 mg/dL (6-20); Calcium 8.6 mg/dL (8.5-10.5); Carbon Dioxide 22 mmol/L (22-29); Chloride 94 mmol/L (98-107); Glomerular Filtration Rate 52.8 mL/min (90-130); Glucose 333 mg/dL (65-115); Magnesium 1.9 mg/dL (1.7-2.3); Osmolality Calculated 286 mOsm/kg (285-295); Phosphorus 2.4 mg/dL (2.5-4.5); Potassium 4.7 mmol/L (3.5-5.1); Sodium 130 mmol/L (136-145)
[2020-11-18] VITALS (16 sets, daily range): BP systolic 109–229; BP diastolic 68–106; PULSE 63–85; RESP 11–20; TEMP 36.7–36.8; O2SAT 91–99; BMI 38.2
[2020-11-18 01:41] LABS: Anion Gap 17.1 (5-19); Blood Urea Nitrogen 21 mg/dL (6-20); Calcium 8.8 mg/dL (8.5-10.5); Carbon Dioxide 24 mmol/L (22-29); Chloride 96 mmol/L (98-107); Glomerular Filtration Rate 57.5 mL/min (90-130); Glucose 207 mg/dL (65-115); Magnesium 1.9 mg/dL (1.7-2.3); Osmolality Calculated 285 mOsm/kg (285-295); Phosphorus 2.7 mg/dL (2.5-4.5); Potassium 4.1 mmol/L (3.5-5.1); Sodium 133 mmol/L (136-145)
[2020-11-18] MEDS: piperacillin-tazobactam 3.375 GM in sodium chloride 0.9% (plus) 50 ML IV ×2 (01:47→11:07)
[2020-11-18] MEDS: HYDROmorphone 1 mg/mL INJ 1 mL 0.5 MG IVP (02:22)
[2020-11-18 04:56] LABS: Basophils # 0.1 10^3/uL (0.0-0.1); Basophils % 0.7 %; Eosinophils # 0.2 10^3/uL (0.0-0.8); Eosinophils % 1.5 %; Hemoglobin 13.5 g/dL (11.7-16.6); Lymphocytes # 1.3 10^3/uL (0.8-4.8); Lymphocytes % 12.4 %; Mean Corpuscular HGB Conc 32.1 g/dL (30.0-36.0); Mean Corpuscular Hemoglobin 27.4 pg (28.0-34.0); Mean Corpuscular Volume 85.4 fl (80-94); Mean Platelet Volume 9.7 fL (7.4-10.4); Monocytes # 0.8 10^3/uL (0.2-0.9); Monocytes % 8.2 %; Neutrophils # 7.84 10^3/uL (1.8-7.7); Neutrophils % 76.9 %; Nucleated Red Blood Cells % 0 %; Platelet Count 245 10^3/cmm (130-400); Red Blood Count 4.92 10^6/uL (4.1-5.3); Red Cell Distribution Width 13.2 % (12.1-15.1); White Blood Count 10.2 10^3/uL (4.0-10.0)
[2020-11-18 05:33] LABS: Alanine Aminotransferase 20 U/L (0-41); Albumin Level 3.3 g/dL (3.5-5.2); Alkaline Phosphatase 75 IU/L (40-130); Anion Gap 16.2 (5-19); Aspartate Amino Transferase 18 U/L (0-40); Blood Urea Nitrogen 19 mg/dL (6-20); Calcium 8.8 mg/dL (8.5-10.5); Carbon Dioxide 23 mmol/L (22-29); Chloride 98 mmol/L (98-107); Globulin 2.8 g/dL (1.3-4.6); Glomerular Filtration Rate 63.1 mL/min (90-130); Glucose 145 mg/dL (65-115); Lactate (Lactic Acid level) 1.9 mmol/L (0.5-2.2); Magnesium 2.1 mg/dL (1.7-2.3); Osmolality Calculated 281 mOsm/kg (285-295); Phosphorus 3.1 mg/dL (2.5-4.5); Potassium 4.2 mmol/L (3.5-5.1); Sodium 133 mmol/L (136-145); Total Bilirubin 0.6 mg/dL (0.15-1.2); Total Protein 6.1 g/dL (6.6-8.7)
[2020-11-18] MEDS: insulin glargine 100 units/1 mL 30 UNIT SUBCUT (05:57)
[2020-11-18 06:25] LABS: Procalcitonin 0.96 ng/mL (0-0.5)
[2020-11-18] MEDS: labetalol 5 mg/mL SDV 20mL 10 MG IVP (06:41)
[2020-11-18] MEDS: sodium chlor 0.9% + KCl 40 mEq 40 MEQ/1,000 ML BAG 75 MEQ IV (07:43)
[2020-11-18] MEDS: sucralfate 1 gm/10 mL Oral Liq UDC PO ×2 (08:10→11:24)
--- NOTE | 2020-11-18 08:26 | CTR_ITS ---
PROCEDURE INFORMATION: Exam: CT Chest Without Contrast; Diagnostic Exam date and time: 11/18/2020 8:26 AM Age: 55 years old Clinical indication: Injury or trauma; Fall; Blunt trauma (contusions or hematomas); Additional info: Rib serires, FX TECHNIQUE: Imaging protocol: Diagnostic computed tomography of the chest without contrast. Total images: 306 Radiation optimization: All CT scans at this facility use at least one of these dose optimization techniques: automated exposure control; mA and/or kV adjustment per patient size (includes targeted exams where dose is matched to clinical indication); or iterative reconstruction. COMPARISON: CR (CHEST, ) 11/16/2020 5:25 PM RADIATION DOSE METRICS: Total DLP (mGy-cm): 1048.43 FINDINGS: Lungs: Unremarkable. No consolidation. No masses. Pleural spaces: Minimal left hemothorax. No pneumothorax. Heart: Unremarkable. No cardiomegaly. No pericardial effusion. Aorta: Unremarkable. No aortic aneurysm. Lymph nodes: Unremarkable. No enlarged lymph nodes. Gallbladder and bile ducts: Prior cholecystectomy noted. Bones/joints: Left 7th, 8th, and 9th rib fractures. Soft tissues: Unremarkable. CT/CT chest wo con [id number] IMPRESSION: 1. Left 7th, 8th, and 9th rib fractures. 2. Minimal left hemothorax. No pneumothorax. Radiation Dose CTDIVOL = (mGy): DLP = 1048.43 (mGy-cm)
[2020-11-18] MEDS: oxyCODONE-APAP 10-325 mg Tablet 1 TAB PO (08:36)
[2020-11-18] MEDS: pantoprazole 40 mg SDV IVP (08:36)
[2020-11-18] MEDS: amlodipine 10 mg Tablet PO (10:39)
[2020-11-18] MEDS: metoprolol succinate ER (24 HR) 50 mg Tablet PO (10:40)
[2020-11-18] MEDS: aspirin 81 mg EC Tablet PO (10:40)
[2020-11-18] MEDS: docusate sodium 100 mg Capsule PO (10:40)
[2020-11-18] MEDS: losartan 50 mg Tablet 100 MG PO (10:40)
[2020-11-18] MEDS: gabapentin 100 mg Capsule PO (10:41)
[2020-11-18] MEDS: cloNIDine 0.1 mg Tablet PO (11:52)
--- NOTE | 2020-11-18 12:25 | P.DS_ITS ---
Discharge Providers Date of Admission: 11/16/20 20:12 Date of Discharge: November 18, 2020 Attending Provider at Admission: Lorelei Grace MD Attending Provider at Discharge: Agustín Dorsey MD Primary Care Provider: Zahida Baldwin MD Diagnoses at Discharge Discharge Diagnosis (1) DKA (diabetic ketoacidoses): Status: Acute Qualifiers: Diabetes mellitus complication detail: without coma Diabetes mellitus type: type 2 Qualified Code(s): E11.10 - Type 2 diabetes mellitus with ketoacidosis without coma (2) Multiple fractures of ribs of left side: Status: Acute Permanent problem details: 8, 9, 10 Qualifiers: Encounter type: subsequent encounter Fracture healing: with routine healing Fracture type: closed Qualified Code(s): S22.42XD - Multiple fractures of ribs, left side, subsequent encounter for fracture with routine healing (3) HTN (hypertension): Status: Chronic Qualifiers: Hypertension type: essential hypertension Qualified Code(s): I10 - Essential (primary) hypertension (4) Chronic kidney disease: Status: Chronic Qualifiers: Chronic kidney disease stage: stage 3 (moderate) Chronic kidney disease stage 3 subtype: stage 3a (GFR 45-59) Qualified Code(s): N18.31 - Chronic kidney disease, stage 3a Reason for Visit Reason for Visit: Vomiting, abnormal blood sugars Hospital Course Hospital Course This is a 55-year-old male with a past medical history of insulin-dependent type 2 diabetes mellitus, dyslipidemia, CKD, recent history of a fall with associated rib fractures who presents to [facility] due to nausea, vomiting, poor appetite, intractable rib pain Patient was admitted to [facility] ICU for diabetic ketoacidosis, was managed on DKA protocol, anion gap closed, blood sugars were reasonable, transitioned to subcu insulin with long-acting, tolerated it well. Patient will be discharged on his home insulin with instructions to drink plenty of electrolyte balance fluids, and follow-up with his primary care provider in 1 week. Patient was advised if his blood sugar is less than 60 drink orange juice or eat hard candy and go to the emergency room. If blood sugar greater than 500, call the emergency room. Record blood sugars 3 times daily, and bring them to primary care physician's office. Patient also had elevated blood pressures during his hospitalization, likely secondary to intractable rib pain, nonetheless I have discharged him on additional clonidine 0.1 twice daily. Follow-up with primary care provider for blood pressure check in 1 week. Patient also had complaints of indigestion during his hospitalization, discharged on Protonix 40 twice daily, CAT scan did show evidence of possible esophagitis, will have patient follow-up with General surgery as outpatient for consideration of EGD. For his intractable rib pain, CT scan of the chest showed left seventh, eighth, ninth rib fractures, with minimal left hemothorax, no pneumothorax. Patient was discharged on oxycodone 10-325 every 8 as needed for pain, to be used sparingly, do not drive or operate heavy machinery or drink alcohol while taking the medication. Patient was advised to use incentive spirometer use, I have discharged him on Augmentin for possible aspiration pneumonia. Patient was advised to hold Celebrex. Follow-up with primary care provider in 1 week. If patient were to have fevers, chills, worsening shortness of breath go to the emergency room. Physical Exam Const: COMMON NORMALS: no acute distress and patient oriented x3 Resp: COMMON NORMALS: normal respiratory effort, No retractions, No use of accessory muscles and clear to auscultation bilaterally AUSCULTATION: clear to auscultation bilaterally Cardio: COMMON NORMALS: regular rate, regular rhythm, S1 normal heart sound present and S2 normal heart sound present RATE: regular rate RHYTHM: regular rhythm HEART SOUNDS: S1 normal heart sound present and S2 normal heart sound present GI: COMMON NORMALS: Normal to inspection, nondistended, normoactive bowel sounds present and Soft to palpation PALPATION: Yes Soft to palpation Extremity: COMMON NORMALS: no pedal edema Neuro: COMMON NORMALS: patient oriented x3 Discharge Data Data Completed and Pending: Completed Studies During Hospitalization Category Date Time Status CT abdomen pelvis w con* [id number] Urge nt Cat Scan 11/16/20 18:[address] chest wo con 7 [id number] Stat Cat Scan 11/18/20 08:26 Completed XR chest 1V fara ble [id number] Stat Exams 11/16/20 17:15 Completed Pending at discharge Category Date Time Status Blood Culture Sta t Lab 11/16/20 17:47 Results C Reactive Protei n AM LABS Lab 11/19/20 04:00 Ordered C Reactive Protei n AM LABS Lab 11/20/20 04:00 Ordered Complete Blood Co unt w/Auto AM LABS Lab 11/19/20 04:00 Ordered Complete Blood Co unt w/Auto AM LABS Lab 11/20/20 04:00 Ordered Comprehensive Met abolic Panel AM LA BS Lab 11/19/20 04:00 Ordered Comprehensive Met abolic Panel AM LA BS Lab 11/20/20 04:00 Ordered Lactate (Lactic A shruthi level) AM LABS Lab 11/19/20 04:00 Ordered Lactate (Lactic A shruthi level) AM LABS Lab 11/20/20 04:00 Ordered Magnesium AM LABS Lab 11/19/20 04:00 Ordered Magnesium AM LABS Lab 11/20/20 04:00 Ordered Phosphorus AM LAB S Lab 11/19/20 04:00 Ordered Phosphorus AM LAB S Lab 11/20/20 04:00 Ordered Procalcitonin AM LABS Lab 11/19/20 04:00 Ordered Procalcitonin AM LABS Lab 11/20/20 04:00 Ordered Labs from last 24 hours 11/18/20 11/18/20 11/18/20 04:30 04:30 04:30 WBC 10.2 H RBC 4.92 Hgb 13.5 Hct 42.0 MCV 85.4 MCH 27.4 L MCHC 32.1 RDW 13.2 Plt Count 245 MPV 9.7 Neut % (Auto) 76.9 Lymph % (Auto) 12.4 [place] % (Auto) 8.2 Eos % (Auto) 1.5 Baso % (Auto) 0.7 Neut # (Auto) 7.84 H Lymph # (Auto) 1.3 [place] # (Auto) 0.8 Eos # (Auto) 0.2 Baso # (Auto) 0.1 Nucleated RBC % (a uto) 0 Nucleated RBCs # 0.0 Sodium 133 L Potassium 4.2 Chloride 98 Carbon Dioxide 23 Anion Gap 16.2 BUN 19 Creatinine 1.2 GFR Calculation 63.1 L Glucose 145 H Calculated Osmolal ity 281 L Lactate 1.9 Calcium 8.8 Phosphorus 3.1 Magnesium 2.1 Total Bilirubin 0.6 AST 18 ALT 20 Alkaline Phosphata se 75 C-Reactive Protein 26.0 H Total Protein 6.1 L Albumin 3.3 L Globulin 2.8 Procalcitonin 11/18/20 11/18/20 11/17/20 04:30 01:02 21:17 WBC RBC Hgb Hct MCV MCH MCHC RDW Plt Count MPV Neut % (Auto) Lymph % (Auto) [place] % (Auto) Eos % (Auto) Baso % (Auto) Neut # (Auto) Lymph # (Auto) [place] # (Auto) Eos # (Auto) Baso # (Auto) Nucleated RBC % (a uto) Nucleated RBCs # Sodium 133 L 130 L Potassium 4.1 4.7 Chloride 96 L 94 L Carbon Dioxide 24 22 Anion Gap 17.1 18.7 BUN 21 H 22 H Creatinine 1.3 H 1.4 H GFR Calculation 57.5 L 52.8 L Glucose 207 H 333 H Calculated Osmolal ity 285 286 Lactate Calcium 8.8 8.6 Phosphorus Cancelled 2.7 2.4 L Magnesium Cancelled 1.9 1.9 Total Bilirubin AST ALT Alkaline Phosphata se C-Reactive Protein Total Protein Albumin Globulin Procalcitonin 0.96 H 11/17/20 11/17/20 17:35 13:10 WBC RBC Hgb Hct MCV MCH MCHC RDW Plt Count MPV Neut % (Auto) Lymph % (Auto) [place] % (Auto) Eos % (Auto) Baso % (Auto) Neut # (Auto) Lymph # (Auto) [place] # (Auto) Eos # (Auto) Baso # (Auto) Nucleated RBC % (a uto) Nucleated RBCs # Sodium 130 L 135 L Potassium 4.2 3.7 Chloride 95 L 99 Carbon Dioxide 22 24 Anion Gap 17.2 15.7 BUN 28 H 26 H Creatinine 1.3 H 1.4 H GFR Calculation 57.5 L 52.8 L Glucose 232 H 100 Calculated Osmolal ity 283 L 285 Lactate Calcium 8.7 8.9 Phosphorus 2.9 3.0 Magnesium 2.1 2.1 Total Bilirubin AST ALT Alkaline Phosphata se C-Reactive Protein Total Protein Albumin Globulin Procalcitonin Vitals: Last Vital Signs Temp 98.0 F 11/18/20 08:00 Pulse 70 11/18/20 10:00 Resp 12 11/18/20 10:00 BP 209/95 11/18/20 11:52 Pulse Ox 98 11/18/20 10:00 Discharge Plan Discharge Patient Disposition: Home Condition: Stable Prescriptions: New oxycodone-acetaminophen 10-325 mg Tablet 1 tab PO Q8H PRN (Reason: Moderate Pain) 7 Days Qty: 21 RF: 0 amoxicillin-pot clavulanate [Augmentin] 875-125 mg tablet 1 tab PO BID 7 Days Qty: 14 RF: 0 pantoprazole [Protonix] 40 mg tablet,delayed release (DR/EC) 40 mg PO BID 30 Days Qty: 60 RF: 0 clonidine HCl 0.1 mg tablet 0.1 mg PO BID 30 Days Qty: 60 RF: 0 Continued aspirin 325 mg tablet,delayed release (DR/EC) 325 mg PO DAILY RF: 0 amlodipine 10 mg tablet 10 mg PO DAILY Qty: 30 RF: 5 metoprolol succinate [Toprol XL] 50 mg tablet extended release 24 hr 50 mg PO DAILY Qty: 30 RF: 5 olmesartan [Benicar] 40 mg tablet 40 mg PO DAILY MDD see pharmacy comment Qty: 30 RF: 4 insulin aspart U-100 [Novolog Flexpen U-100 Insulin] 100 unit/mL (3 mL) insulin pen 40 - 60 unit SUBCUT TID Qty: 15 RF: 5 Changed Lantus Solostar U-100 Insulin 100 unit/mL (3 mL) insulin pen 60 unit SUBCUT BEDTIME Qty: 0 RF: 0 Discontinued hydrocodone-acetaminophen 5-325 mg tablet 1 tab PO TID PRN (Reason: pain) Qty: 21 RF: 0 celecoxib [Celebrex] 100 mg capsule 100 mg PO BID Qty: 20 RF: 0 Discharge Orders: Discharge Order (Routine); Ordered 11/18/20 Ordered By: Agustín Dorsey Referrals: Sanket Ennis MD [Physician] - 1 month (esophagitis, egd) Zahida Baldwin MD [Primary Care Provider] - 1 week Discharge Diet: Diabetic Discharge Activity: Resume usual activity Patient Instructions: Clonidine (By mouth), Oxycodone/Acetaminophen (By mouth), Amoxicillin (By mouth), Pantoprazole (By mouth), Hypertension, Acute Kidney Injury (DC), Heart Healthy Diet (DC), Diabetic Ketoacidosis (DC), Opioid Safety Activity Restrictions/Additional Instructions: -Please continue to hydrate well -Please continue to be mobile, incentive spirometer use, monitor for fevers -If any fevers, any cough, go to the emergency room -Please use oxycodone sparingly for rib fractures, please do not drink alcohol or drive or operate heavy machinery while taking pain medications -Hold Celebrex until you see your primary care physician -Check blood sugars 3 times daily, if blood sugar less than 60 drink or juice or eat a hard candy and call primary care -If blood sugar in the 500, call primary care -Please use antibiotics as prescribed Discharge Attestations Time Spent in Discharge Care*: less than 30 min Quality Metrics Clinical Quality Measures During this hospital stay, did patient experience: None Coding Level of Care Code Acute Chg FW DC note Exam Detailed Diagnoses DKA (diabetic ketoacidoses) E11.10 Diabetes mellitus complication detail: without coma Diabetes mellitus type: type 2 Multiple fractures of ribs of left side S22.42XD Encounter type: subsequent encounter Fracture healing: with routine healing Fracture type: closed HTN (hypertension) I10 Hypertension type: essential hypertension Chronic kidney disease N18.31 Chronic kidney disease stage: stage 3 (moderate) Chronic kidney disease stage 3 subtype: stage 3a (GFR 45-59)
[2020-11-19 07:56] LABS: Glucose Point of Care 120 mg/dL (70-110)
[2020-11-19 07:56] LABS: Glucose Point of Care 107 mg/dL (70-110)
[2020-11-19 07:56] LABS: Glucose Point of Care 108 mg/dL (70-110)
[2020-11-19 07:56] LABS: Glucose Point of Care 108 mg/dL (70-110)
[2020-11-19 07:56] LABS: Glucose Point of Care 264 mg/dL (70-110)
[2020-11-19 07:56] LABS: Glucose Point of Care 111 mg/dL (70-110)
[2020-11-19 07:56] LABS: Glucose Point of Care 115 mg/dL (70-110)
[2020-11-19 07:56] LABS: Glucose Point of Care 101 mg/dL (70-110)
[2020-11-19 07:56] LABS: Glucose Point of Care 116 mg/dL (70-110)
[2020-11-19 07:58] LABS: Glucose Point of Care 294 mg/dL (70-110)
[2020-11-19 07:58] LABS: Glucose Point of Care 154 mg/dL (70-110)
[2020-11-19 07:58] LABS: Glucose Point of Care 177 mg/dL (70-110)
--- NOTE | 2020-11-21 10:46 | PC.SOCIAL ---
discharge follow up call made. Patient will make his own follow up appointment with Dr. Baldwin. Appointment made with Dr. Ennis and given to patient.
== END 2020-11-18 13:20 | disposition home or self-care (01) | DRG 638 ==
LOC: ER 19:46 → ICU 20:24
PROVIDERS: Physician Assistant; Admitting Provider Hospitalist; Emergency Provider Emergency Medicine; PCP Family Medicine; Visit Provider Family Medicine
DX: E11.10 Type 2 diabetes mellitus with ketoacidosis without coma (principal); E87.1 Hypo-osmolality and hyponatremia; Z79.4 Long term (current) use of insulin; E11.22 Type 2 diabetes mellitus with diabetic chronic kidney disease; I12.9 Hypertensive chronic kidney disease with stage 1 through stage 4 chronic kidney disease, or unspecified chronic kidney disease; N18.31 Chronic kidney disease, stage 3a; E78.5 Hyperlipidemia, unspecified; Z89.431 Acquired absence of right foot; Z87.891 Personal history of nicotine dependence; E87.5 Hyperkalemia; S27.1XXD Traumatic hemothorax, subsequent encounter; S22.42XD Multiple fractures of ribs, left side, subsequent encounter for fracture with routine healing; W17.89XD Other fall from one level to another, subsequent encounter; G89.11 Acute pain due to trauma; K20.90 Esophagitis, unspecified without bleeding; I88.9 Nonspecific lymphadenitis, unspecified
CPT/HCPCS: 36415; 36416; 36600; 71045; 71250; 74177; 80048; 80051; 80053; 80061; 81001; 82009; 82330; 82803; 82805; 82962; 83036; 83605; 83690; 83735; 84100; 84145; 84484; 85025; 86140; 87040; 93005; 96361; 96365; 96366; 96367; 96372; 96375; 99285; C9113; J0610; J1170; J1650; J1815 ×2; J2270; J2405; J2543; J2765; J3490; J7030; J7050; J7799; Q9967

== ENCOUNTER 2020-11-29 13:52 | Outpatient (CLI) | payer MEDICAID, SELFPAY | END 2020-11-29 13:53 | disposition home or self-care (01) | LOC: WOUND 13:53 | PROVIDERS: PCP Family Medicine; Visit Provider Thoracic Surgery (Cardiothoracic Vascular Surgery) | DX: E11.621 Type 2 diabetes mellitus with foot ulcer (principal); L97.511 Non-pressure chronic ulcer of other part of right foot limited to breakdown of skin | CPT/HCPCS: 97597; 97598; G0463 ==

== ENCOUNTER 2020-12-06 13:53 | Outpatient (CLI) | payer MEDICAID, SELFPAY | END 2020-12-06 13:54 | disposition home or self-care (01) | LOC: WOUND 13:54 | PROVIDERS: PCP Family Medicine; Visit Provider Thoracic Surgery (Cardiothoracic Vascular Surgery) | DX: E11.621 Type 2 diabetes mellitus with foot ulcer (principal); L97.511 Non-pressure chronic ulcer of other part of right foot limited to breakdown of skin | CPT/HCPCS: 97597; A6219 ==

== ENCOUNTER 2020-12-20 09:40 | Outpatient (CLI) | payer MEDICAID, SELFPAY | END 2020-12-20 09:41 | disposition home or self-care (01) | LOC: WOUND 09:41 | PROVIDERS: PCP Family Medicine; Visit Provider Thoracic Surgery (Cardiothoracic Vascular Surgery) | DX: E11.621 Type 2 diabetes mellitus with foot ulcer (principal); L97.511 Non-pressure chronic ulcer of other part of right foot limited to breakdown of skin | CPT/HCPCS: 97597 ==

== ENCOUNTER 2021-01-03 08:00 | Outpatient (CLI) | payer MEDICAID, SELFPAY | END 2021-01-03 08:01 | disposition home or self-care (01) | LOC: WOUND 08:01 | PROVIDERS: PCP Family Medicine; Visit Provider Nurse Practitioner Family | DX: E11.621 Type 2 diabetes mellitus with foot ulcer (principal); L97.512 Non-pressure chronic ulcer of other part of right foot with fat layer exposed | CPT/HCPCS: 11042 ==

== ENCOUNTER 2021-01-05 11:14 | Outpatient (CLI) | payer MEDICAID, SELFPAY ==
--- NOTE | 2021-01-05 11:24 | XR_ITS ---
WS: [id number] Right foot, 3 views, 01/05/2021 Clinical Data: DIABETIC FOOT ULCER Comparison: Right foot, 07/03/2017. 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 Only the bases of the first through fifth metatarsals remain. No bone destruction or erosion is seen. There is no evidence of osteomyelitis. The tarsal bones are intact. XR/XR foot RT min 3V* [id number] Impression: 1. Forefoot amputation unchanged. 2. No evidence of osteomyelitis.
== END 2021-01-05 11:15 | disposition home or self-care (01) ==
PROVIDERS: PCP Family Medicine; Visit Provider Nurse Practitioner Family
DX: E11.621 Type 2 diabetes mellitus with foot ulcer (principal); Z89.431 Acquired absence of right foot
CPT/HCPCS: 73630

== ENCOUNTER → 2021-01-09 13:03 | Outpatient (BNVA) | payer MEDICAID, SELFPAY | PROVIDERS: PCP Family Medicine; Visit Provider Family Medicine | DX: I10 Essential (primary) hypertension (principal); E78.5 Hyperlipidemia, unspecified; E11.9 Type 2 diabetes mellitus without complications; Z79.4 Long term (current) use of insulin | CPT/HCPCS: 80053; 80061; 83036; 84443; 85025 ==

== ENCOUNTER 2021-01-10 07:54 | Outpatient (CLI) | payer MEDICAID, SELFPAY | END 2021-01-10 07:55 | disposition home or self-care (01) | LOC: WOUND 07:55 | PROVIDERS: PCP Family Medicine; Visit Provider Thoracic Surgery (Cardiothoracic Vascular Surgery) | DX: E11.621 Type 2 diabetes mellitus with foot ulcer (principal); L97.511 Non-pressure chronic ulcer of other part of right foot limited to breakdown of skin | CPT/HCPCS: 97597 ==

== ENCOUNTER 2021-01-17 07:57 | Outpatient (CLI) | payer MEDICAID, SELFPAY | END 2021-01-17 07:58 | disposition home or self-care (01) | LOC: WOUND 07:57 | PROVIDERS: PCP Family Medicine; Visit Provider Thoracic Surgery (Cardiothoracic Vascular Surgery) | DX: E11.621 Type 2 diabetes mellitus with foot ulcer (principal); L97.511 Non-pressure chronic ulcer of other part of right foot limited to breakdown of skin; I10 Essential (primary) hypertension; I87.2 Venous insufficiency (chronic) (peripheral) | CPT/HCPCS: 97597 ==

== ENCOUNTER 2021-01-24 07:59 | Outpatient (CLI) | payer MEDICAID, SELFPAY | END 2021-01-24 08:00 | disposition home or self-care (01) | LOC: WOUND 07:59 | PROVIDERS: PCP Family Medicine; Visit Provider Thoracic Surgery (Cardiothoracic Vascular Surgery) | DX: E11.621 Type 2 diabetes mellitus with foot ulcer (principal); L97.511 Non-pressure chronic ulcer of other part of right foot limited to breakdown of skin | CPT/HCPCS: 97597 ==

== ENCOUNTER 2021-01-31 08:14 | Outpatient (CLI) | payer MEDICAID, SELFPAY | END 2021-01-31 08:15 | disposition home or self-care (01) | LOC: WOUND 08:15 | PROVIDERS: PCP Family Medicine; Visit Provider Nurse Practitioner Family | DX: E11.621 Type 2 diabetes mellitus with foot ulcer (principal); L97.512 Non-pressure chronic ulcer of other part of right foot with fat layer exposed; I10 Essential (primary) hypertension | CPT/HCPCS: 15275; A6250; Q4187 ==

== ENCOUNTER 2021-02-07 08:00 | Outpatient (CLI) | payer MEDICAID, SELFPAY | END 2021-02-07 08:01 | disposition home or self-care (01) | LOC: WOUND 08:00 | PROVIDERS: PCP Family Medicine; Visit Provider Nurse Practitioner Family | DX: E11.621 Type 2 diabetes mellitus with foot ulcer (principal); L97.512 Non-pressure chronic ulcer of other part of right foot with fat layer exposed; I10 Essential (primary) hypertension | CPT/HCPCS: 15275; A6219; A6250; Q4187 ==

== ENCOUNTER 2021-02-21 08:05 | Outpatient (CLI) | payer MEDICAID, SELFPAY | END 2021-02-21 08:06 | disposition home or self-care (01) | LOC: WOUND 08:06 | PROVIDERS: PCP Family Medicine; Visit Provider Thoracic Surgery (Cardiothoracic Vascular Surgery) | DX: I96 Gangrene, not elsewhere classified (principal); E11.621 Type 2 diabetes mellitus with foot ulcer; L97.512 Non-pressure chronic ulcer of other part of right foot with fat layer exposed | CPT/HCPCS: 15275; A6219; A6250; Q4187 ==

== ENCOUNTER 2021-02-28 08:13 | Outpatient (CLI) | payer MEDICAID, SELFPAY | END 2021-02-28 08:14 | disposition home or self-care (01) | LOC: WOUND 08:14 | PROVIDERS: PCP Family Medicine; Visit Provider Thoracic Surgery (Cardiothoracic Vascular Surgery) | DX: I96 Gangrene, not elsewhere classified (principal); E11.621 Type 2 diabetes mellitus with foot ulcer; L97.512 Non-pressure chronic ulcer of other part of right foot with fat layer exposed | CPT/HCPCS: A6220; A6250 ==

== ENCOUNTER 2021-02-28 08:41 | Outpatient (CLI) | payer MEDICAID, SELFPAY | END 2021-02-28 08:42 | disposition home or self-care (01) | LOC: WOUND 08:42 | PROVIDERS: PCP Family Medicine; Visit Provider Thoracic Surgery (Cardiothoracic Vascular Surgery) | DX: I96 Gangrene, not elsewhere classified (principal); E11.621 Type 2 diabetes mellitus with foot ulcer; L97.512 Non-pressure chronic ulcer of other part of right foot with fat layer exposed | CPT/HCPCS: 15275; Q4187 ==

== ENCOUNTER 2021-03-06 11:09 | Outpatient (CLI) | payer MEDICAID, SELFPAY | END 2021-03-06 11:10 | disposition home or self-care (01) | LOC: WOUND 11:09 | PROVIDERS: PCP Family Medicine; Visit Provider Nurse Practitioner Family | DX: I96 Gangrene, not elsewhere classified (principal); E11.621 Type 2 diabetes mellitus with foot ulcer; L97.512 Non-pressure chronic ulcer of other part of right foot with fat layer exposed; I87.2 Venous insufficiency (chronic) (peripheral) | CPT/HCPCS: 11042 ==

== ENCOUNTER 2021-03-19 09:24 | Outpatient (CLI) | payer MEDICAID, SELFPAY | END 2021-03-19 09:25 | disposition home or self-care (01) | LOC: WOUND 09:25 | PROVIDERS: PCP Family Medicine; Visit Provider Thoracic Surgery (Cardiothoracic Vascular Surgery) | DX: I96 Gangrene, not elsewhere classified (principal); E11.621 Type 2 diabetes mellitus with foot ulcer; L97.512 Non-pressure chronic ulcer of other part of right foot with fat layer exposed | CPT/HCPCS: 11042 ==

== ENCOUNTER 2021-03-26 08:17 | Outpatient (CLI) | payer MEDICAID, SELFPAY | END 2021-03-26 08:18 | disposition home or self-care (01) | LOC: WOUND 08:17 | PROVIDERS: PCP Family Medicine; Visit Provider Thoracic Surgery (Cardiothoracic Vascular Surgery) | DX: I96 Gangrene, not elsewhere classified (principal); E11.621 Type 2 diabetes mellitus with foot ulcer; L97.511 Non-pressure chronic ulcer of other part of right foot limited to breakdown of skin | CPT/HCPCS: 97597 ==

== ENCOUNTER 2021-03-29 16:23 | Outpatient (CLI) | payer MEDICAID, SELFPAY | END 2021-03-29 16:24 | disposition home or self-care (01) | LOC: SPT 16:23 | PROVIDERS: PCP Family Medicine; Visit Provider Nurse Practitioner Family | DX: Z46.89 Encounter for fitting and adjustment of other specified devices (principal); R26.89 Other abnormalities of gait and mobility | CPT/HCPCS: 97760 ==

== ENCOUNTER 2021-04-02 08:12 | Outpatient (CLI) | payer MEDICAID, SELFPAY | END 2021-04-02 08:13 | disposition home or self-care (01) | LOC: WOUND 08:12 | PROVIDERS: PCP Family Medicine; Visit Provider Nurse Practitioner Family | DX: I96 Gangrene, not elsewhere classified (principal); E11.621 Type 2 diabetes mellitus with foot ulcer; L97.512 Non-pressure chronic ulcer of other part of right foot with fat layer exposed | CPT/HCPCS: 11042; A6219 ==

== ENCOUNTER → 2021-04-03 09:10 | Outpatient (BNVA) | payer MEDICAID, SELFPAY | PROVIDERS: PCP Family Medicine; Referring Provider Family Medicine; Visit Provider Physician Assistant | DX: M54.2 Cervicalgia (principal) | CPT/HCPCS: 72050 ==

== ENCOUNTER 2021-04-09 08:06 | Outpatient (CLI) | payer MEDICAID, SELFPAY | END 2021-04-09 08:07 | disposition home or self-care (01) | LOC: WOUND 08:07 | PROVIDERS: PCP Family Medicine; Visit Provider Thoracic Surgery (Cardiothoracic Vascular Surgery) | DX: I96 Gangrene, not elsewhere classified (principal); E11.621 Type 2 diabetes mellitus with foot ulcer; L97.521 Non-pressure chronic ulcer of other part of left foot limited to breakdown of skin | CPT/HCPCS: 97597; A6220 ==

== ENCOUNTER 2021-04-16 08:09 | Outpatient (CLI) | payer MEDICAID, SELFPAY | END 2021-04-16 08:10 | disposition home or self-care (01) | LOC: WOUND 08:10 | PROVIDERS: PCP Family Medicine; Visit Provider Thoracic Surgery (Cardiothoracic Vascular Surgery) | DX: I96 Gangrene, not elsewhere classified (principal); E11.621 Type 2 diabetes mellitus with foot ulcer; L97.512 Non-pressure chronic ulcer of other part of right foot with fat layer exposed | CPT/HCPCS: 11042 ==

== ENCOUNTER 2021-04-23 08:08 | Outpatient (CLI) | payer MEDICAID, SELFPAY | END 2021-04-23 08:09 | disposition home or self-care (01) | LOC: WOUND 08:08 | PROVIDERS: PCP Family Medicine; Visit Provider Thoracic Surgery (Cardiothoracic Vascular Surgery) | DX: I96 Gangrene, not elsewhere classified (principal); E11.621 Type 2 diabetes mellitus with foot ulcer; L97.511 Non-pressure chronic ulcer of other part of right foot limited to breakdown of skin | CPT/HCPCS: 97597 ==

== ENCOUNTER 2021-04-30 08:06 | Outpatient (CLI) | payer MEDICAID, SELFPAY | END 2021-04-30 08:07 | disposition home or self-care (01) | LOC: WOUND 08:07 | PROVIDERS: PCP Family Medicine; Visit Provider Thoracic Surgery (Cardiothoracic Vascular Surgery) | DX: I96 Gangrene, not elsewhere classified (principal); E11.621 Type 2 diabetes mellitus with foot ulcer; L97.511 Non-pressure chronic ulcer of other part of right foot limited to breakdown of skin | CPT/HCPCS: 97597 ==

== ENCOUNTER 2021-05-07 08:02 | Outpatient (CLI) | payer MEDICAID, SELFPAY | END 2021-05-07 08:03 | disposition home or self-care (01) | LOC: WOUND 08:05 | PROVIDERS: PCP Family Medicine; Visit Provider Thoracic Surgery (Cardiothoracic Vascular Surgery) | DX: I96 Gangrene, not elsewhere classified (principal); E11.621 Type 2 diabetes mellitus with foot ulcer; L97.512 Non-pressure chronic ulcer of other part of right foot with fat layer exposed | CPT/HCPCS: 97597 ==

== ENCOUNTER → 2021-05-09 08:30 | Outpatient (BNVA) | payer MEDICAID, SELFPAY | PROVIDERS: PCP Family Medicine; Referring Provider Thoracic Surgery (Cardiothoracic Vascular Surgery); Visit Provider Internal Medicine | DX: E13.621 Other specified diabetes mellitus with foot ulcer (principal); E13.22 Other specified diabetes mellitus with diabetic chronic kidney disease; E78.5 Hyperlipidemia, unspecified; L97.509 Non-pressure chronic ulcer of other part of unspecified foot with unspecified severity; E16.0 Drug-induced hypoglycemia without coma; T38.3X5A Adverse effect of insulin and oral hypoglycemic [antidiabetic] drugs, initial encounter; Z89.431 Acquired absence of right foot; Z79.4 Long term (current) use of insulin | CPT/HCPCS: 99204 ==

== ENCOUNTER 2021-05-14 08:05 | Outpatient (CLI) | payer MEDICAID, SELFPAY | END 2021-05-14 08:06 | disposition home or self-care (01) | LOC: WOUND 08:06 | PROVIDERS: PCP Family Medicine; Visit Provider Thoracic Surgery (Cardiothoracic Vascular Surgery) | DX: E11.621 Type 2 diabetes mellitus with foot ulcer (principal); L97.511 Non-pressure chronic ulcer of other part of right foot limited to breakdown of skin | CPT/HCPCS: 97597 ==

== ENCOUNTER 2021-05-18 09:11 | Outpatient (CLI) | payer MEDICAID, SELFPAY ==
[2021-05-18 10:40] LABS: Estmated Average Glucose 186; Hemoglobin A1C 8.1 % (4.0-6.0)
[2021-05-19 09:22] LABS: C-Peptide <0.10 ng/mL (0.80-3.85)
== END 2021-05-18 09:12 | disposition home or self-care (01) ==
LOC: LAB 09:14
PROVIDERS: PCP Family Medicine; Visit Provider Internal Medicine
DX: E13.22 Other specified diabetes mellitus with diabetic chronic kidney disease (principal)
CPT/HCPCS: 36415; 83036; 83519; 83525; 84681; 86337; 86341

== ENCOUNTER 2021-05-21 08:08 | Outpatient (CLI) | payer MEDICAID, SELFPAY | END 2021-05-21 08:09 | disposition home or self-care (01) | LOC: WOUND 08:09 | PROVIDERS: PCP Family Medicine; Visit Provider Thoracic Surgery (Cardiothoracic Vascular Surgery) | DX: E11.621 Type 2 diabetes mellitus with foot ulcer (principal); L97.511 Non-pressure chronic ulcer of other part of right foot limited to breakdown of skin | CPT/HCPCS: 97597 ==

== ENCOUNTER → 2021-05-23 11:00 | Outpatient (BNVA) | payer MEDICAID, SELFPAY | PROVIDERS: PCP Family Medicine; Visit Provider Internal Medicine | DX: E10.65 Type 1 diabetes mellitus with hyperglycemia (principal); E10.621 Type 1 diabetes mellitus with foot ulcer; E78.5 Hyperlipidemia, unspecified; E16.0 Drug-induced hypoglycemia without coma; T38.3X5A Adverse effect of insulin and oral hypoglycemic [antidiabetic] drugs, initial encounter; L97.509 Non-pressure chronic ulcer of other part of unspecified foot with unspecified severity; Z89.431 Acquired absence of right foot; Z79.4 Long term (current) use of insulin; Z87.891 Personal history of nicotine dependence | CPT/HCPCS: 99214 ==

== ENCOUNTER 2021-06-04 08:05 | Outpatient (CLI) | payer MEDICAID, SELFPAY | END 2021-06-04 08:06 | disposition home or self-care (01) | LOC: WOUND 08:06 | PROVIDERS: PCP Family Medicine; Visit Provider Thoracic Surgery (Cardiothoracic Vascular Surgery) | DX: E11.621 Type 2 diabetes mellitus with foot ulcer (principal); I96 Gangrene, not elsewhere classified; L97.511 Non-pressure chronic ulcer of other part of right foot limited to breakdown of skin | CPT/HCPCS: 97597 ==

== ENCOUNTER 2021-06-07 14:43 | Outpatient (CLI) | payer MEDICAID, SELFPAY | END 2021-06-07 14:44 | disposition home or self-care (01) | LOC: SPT 14:44 | PROVIDERS: PCP Family Medicine; Visit Provider Thoracic Surgery (Cardiothoracic Vascular Surgery) | DX: R26.89 Other abnormalities of gait and mobility (principal) | CPT/HCPCS: 97760 ==

== ENCOUNTER → 2021-06-11 08:08 | Outpatient (BNVA) | payer MEDICAID, SELFPAY | PROVIDERS: PCP Family Medicine; Visit Provider Nurse Practitioner Family | DX: E11.621 Type 2 diabetes mellitus with foot ulcer (principal); I96 Gangrene, not elsewhere classified; L97.511 Non-pressure chronic ulcer of other part of right foot limited to breakdown of skin | CPT/HCPCS: 11042 ==

== ENCOUNTER → 2021-06-18 08:03 | Outpatient (BNVA) | payer MEDICAID, SELFPAY | PROVIDERS: PCP Family Medicine; Visit Provider Thoracic Surgery (Cardiothoracic Vascular Surgery) | DX: E11.621 Type 2 diabetes mellitus with foot ulcer (principal); I96 Gangrene, not elsewhere classified; L97.511 Non-pressure chronic ulcer of other part of right foot limited to breakdown of skin | CPT/HCPCS: 97597 ==

== ENCOUNTER → 2021-06-25 07:53 | Outpatient (BNVA) | payer MEDICAID, SELFPAY | PROVIDERS: PCP Family Medicine; Visit Provider Thoracic Surgery (Cardiothoracic Vascular Surgery) | DX: E10.649 Type 1 diabetes mellitus with hypoglycemia without coma (principal); E10.65 Type 1 diabetes mellitus with hyperglycemia; E10.621 Type 1 diabetes mellitus with foot ulcer; E78.5 Hyperlipidemia, unspecified; E16.0 Drug-induced hypoglycemia without coma; T38.3X5A Adverse effect of insulin and oral hypoglycemic [antidiabetic] drugs, initial encounter; L97.511 Non-pressure chronic ulcer of other part of right foot limited to breakdown of skin; Z89.431 Acquired absence of right foot; Z87.891 Personal history of nicotine dependence; Z79.4 Long term (current) use of insulin | CPT/HCPCS: 97597; 99214 ==

== ENCOUNTER → 2021-07-02 08:00 | Outpatient (BNVA) | payer MEDICAID, SELFPAY | PROVIDERS: PCP Family Medicine; Visit Provider Thoracic Surgery (Cardiothoracic Vascular Surgery) | DX: E11.621 Type 2 diabetes mellitus with foot ulcer (principal); L97.511 Non-pressure chronic ulcer of other part of right foot limited to breakdown of skin | CPT/HCPCS: 15275; A6250; Q4187 ==

== ENCOUNTER → 2021-07-09 08:08 | Outpatient (BNVA) | payer MEDICAID, SELFPAY | PROVIDERS: PCP Family Medicine; Visit Provider Thoracic Surgery (Cardiothoracic Vascular Surgery) | DX: E11.621 Type 2 diabetes mellitus with foot ulcer (principal); L97.511 Non-pressure chronic ulcer of other part of right foot limited to breakdown of skin; I96 Gangrene, not elsewhere classified | CPT/HCPCS: 15275; A6206; A6250; A6252; Q4187 ==

== ENCOUNTER → 2021-07-16 07:55 | Outpatient (BNVA) | payer MEDICAID, SELFPAY | PROVIDERS: PCP Family Medicine; Visit Provider Thoracic Surgery (Cardiothoracic Vascular Surgery) | DX: E11.621 Type 2 diabetes mellitus with foot ulcer (principal); L97.511 Non-pressure chronic ulcer of other part of right foot limited to breakdown of skin; I96 Gangrene, not elsewhere classified | CPT/HCPCS: 97597; A6250 ==

== ENCOUNTER → 2021-07-23 08:02 | Outpatient (BNVA) | payer MEDICAID, SELFPAY | PROVIDERS: PCP Family Medicine; Visit Provider Thoracic Surgery (Cardiothoracic Vascular Surgery) | DX: E11.621 Type 2 diabetes mellitus with foot ulcer (principal); L97.511 Non-pressure chronic ulcer of other part of right foot limited to breakdown of skin; I96 Gangrene, not elsewhere classified | CPT/HCPCS: 97597; A6197; A6251 ==

== ENCOUNTER → 2021-07-30 08:01 | Outpatient (BNVA) | payer MEDICAID, SELFPAY | PROVIDERS: PCP Family Medicine; Visit Provider Thoracic Surgery (Cardiothoracic Vascular Surgery) | DX: E11.621 Type 2 diabetes mellitus with foot ulcer (principal); L97.511 Non-pressure chronic ulcer of other part of right foot limited to breakdown of skin; I96 Gangrene, not elsewhere classified | CPT/HCPCS: 97597; A6250; A6252 ==

== ENCOUNTER → 2021-08-06 08:01 | Outpatient (BNVA) | payer MEDICAID, SELFPAY | PROVIDERS: PCP Family Medicine; Visit Provider Thoracic Surgery (Cardiothoracic Vascular Surgery) | DX: E11.621 Type 2 diabetes mellitus with foot ulcer (principal); L97.511 Non-pressure chronic ulcer of other part of right foot limited to breakdown of skin; I96 Gangrene, not elsewhere classified | CPT/HCPCS: 97597; A6197; A6250; A6252 ==

== ENCOUNTER → 2021-08-20 08:02 | Outpatient (BNVA) | payer MEDICAID, SELFPAY | PROVIDERS: PCP Family Medicine; Visit Provider Thoracic Surgery (Cardiothoracic Vascular Surgery) | DX: E11.621 Type 2 diabetes mellitus with foot ulcer (principal); L97.511 Non-pressure chronic ulcer of other part of right foot limited to breakdown of skin; I96 Gangrene, not elsewhere classified | CPT/HCPCS: 11042; 87070; 87077; 87176; 87186; 87205; A6197 ==

== ENCOUNTER → 2021-08-27 07:54 | Outpatient (BNVA) | payer MEDICAID, SELFPAY | PROVIDERS: PCP Family Medicine; Visit Provider Thoracic Surgery (Cardiothoracic Vascular Surgery) | DX: I96 Gangrene, not elsewhere classified (principal); L97.511 Non-pressure chronic ulcer of other part of right foot limited to breakdown of skin | CPT/HCPCS: 97597; A6197; A6252 ==

== ENCOUNTER → 2021-08-29 08:36 | Outpatient (BNVA) | payer MEDICAID, SELFPAY | PROVIDERS: PCP Family Medicine; Visit Provider Nurse Practitioner Family | DX: E11.621 Type 2 diabetes mellitus with foot ulcer (principal); L97.511 Non-pressure chronic ulcer of other part of right foot limited to breakdown of skin; I96 Gangrene, not elsewhere classified | CPT/HCPCS: 11042; A6197 ==

== ENCOUNTER → 2021-09-03 08:00 | Outpatient (BNVA) | payer MEDICAID, SELFPAY | PROVIDERS: PCP Family Medicine; Visit Provider Nurse Practitioner Family | DX: E11.621 Type 2 diabetes mellitus with foot ulcer (principal); L97.511 Non-pressure chronic ulcer of other part of right foot limited to breakdown of skin; I96 Gangrene, not elsewhere classified | CPT/HCPCS: 11042; A6197 ==

== ENCOUNTER → 2021-09-10 07:58 | Outpatient (BNVA) | payer MEDICAID, SELFPAY | PROVIDERS: PCP Family Medicine; Visit Provider Thoracic Surgery (Cardiothoracic Vascular Surgery) | DX: E11.621 Type 2 diabetes mellitus with foot ulcer (principal); I96 Gangrene, not elsewhere classified; L97.511 Non-pressure chronic ulcer of other part of right foot limited to breakdown of skin | CPT/HCPCS: 80053; 80061; 81000; 82043; 83036; 84550; 85025; 85651; 97597; A6197; G0103 ==

== ENCOUNTER → 2021-09-24 08:04 | Outpatient (BNVA) | payer MEDICAID, SELFPAY | PROVIDERS: PCP Family Medicine; Visit Provider Nurse Practitioner Family | DX: E10.649 Type 1 diabetes mellitus with hypoglycemia without coma (principal); E10.621 Type 1 diabetes mellitus with foot ulcer; E10.22 Type 1 diabetes mellitus with diabetic chronic kidney disease; N18.31 Chronic kidney disease, stage 3a; E78.5 Hyperlipidemia, unspecified; L97.509 Non-pressure chronic ulcer of other part of unspecified foot with unspecified severity; Z89.431 Acquired absence of right foot; E16.0 Drug-induced hypoglycemia without coma; T38.3X5A Adverse effect of insulin and oral hypoglycemic [antidiabetic] drugs, initial encounter; Z79.4 Long term (current) use of insulin; L97.511 Non-pressure chronic ulcer of other part of right foot limited to breakdown of skin; I96 Gangrene, not elsewhere classified | CPT/HCPCS: 15275; 99215; A6207; Q4187 ==

== ENCOUNTER → 2021-09-26 14:10 | Outpatient (BNVA) | payer MEDICAID, SELFPAY | PROVIDERS: PCP Family Medicine; Visit Provider Surgery | DX: Z12.11 Encounter for screening for malignant neoplasm of colon (principal); Z86.010 Personal history of colon polyps | CPT/HCPCS: 99203 ==

== ENCOUNTER → 2021-10-01 08:02 | Outpatient (BNVA) | payer MEDICAID, SELFPAY | PROVIDERS: PCP Family Medicine; Visit Provider Thoracic Surgery (Cardiothoracic Vascular Surgery) | DX: E11.621 Type 2 diabetes mellitus with foot ulcer (principal); L97.511 Non-pressure chronic ulcer of other part of right foot limited to breakdown of skin; I96 Gangrene, not elsewhere classified | CPT/HCPCS: 15275; Q4187 ==

== ENCOUNTER → 2021-10-08 09:11 | Outpatient (BNVA) | payer MEDICAID, SELFPAY | PROVIDERS: PCP Family Medicine; Visit Provider Thoracic Surgery (Cardiothoracic Vascular Surgery) | DX: E11.621 Type 2 diabetes mellitus with foot ulcer (principal); L97.511 Non-pressure chronic ulcer of other part of right foot limited to breakdown of skin | CPT/HCPCS: 15275; A6206; A6250; Q4187 ==

== ENCOUNTER → 2021-10-15 08:29 | Outpatient (BNVA) | payer MEDICAID, SELFPAY | PROVIDERS: PCP Family Medicine; Visit Provider Nurse Practitioner Family | DX: E11.621 Type 2 diabetes mellitus with foot ulcer (principal); L97.511 Non-pressure chronic ulcer of other part of right foot limited to breakdown of skin; I96 Gangrene, not elsewhere classified | CPT/HCPCS: 11042 ==

== ENCOUNTER → 2021-10-22 07:57 | Outpatient (BNVA) | payer MEDICAID, SELFPAY | PROVIDERS: PCP Family Medicine; Visit Provider Thoracic Surgery (Cardiothoracic Vascular Surgery) | DX: E11.621 Type 2 diabetes mellitus with foot ulcer (principal); L97.511 Non-pressure chronic ulcer of other part of right foot limited to breakdown of skin; I96 Gangrene, not elsewhere classified | CPT/HCPCS: 97597 ==

== ENCOUNTER → 2021-10-29 08:07 | Outpatient (BNVA) | payer MEDICAID, SELFPAY | PROVIDERS: PCP Family Medicine; Visit Provider Thoracic Surgery (Cardiothoracic Vascular Surgery) | DX: E11.621 Type 2 diabetes mellitus with foot ulcer (principal); L97.511 Non-pressure chronic ulcer of other part of right foot limited to breakdown of skin; I96 Gangrene, not elsewhere classified | CPT/HCPCS: 11042 ==

== ENCOUNTER → 2021-11-05 07:57 | Outpatient (BNVA) | payer MEDICAID, SELFPAY | PROVIDERS: PCP Family Medicine; Visit Provider Thoracic Surgery (Cardiothoracic Vascular Surgery) | DX: E11.621 Type 2 diabetes mellitus with foot ulcer (principal); L97.511 Non-pressure chronic ulcer of other part of right foot limited to breakdown of skin; I96 Gangrene, not elsewhere classified | CPT/HCPCS: 15275; A6206; A6250 ==

== ENCOUNTER 2021-11-09 07:39 | Day surgery (SDC) | payer MEDICAID, SELFPAY ==
--- NOTE | 2021-11-09 06:20 | P.HP_ITS ---
Same Day Surgery H&P Indication for Procedure/HPI DATE OF PROCEDURE: November 09, 2021 CHIEF COMPLAINT/INDICATIONFOR SURGICAL PROCEDURE: history of colon polyps PREOP DIAGNOSIS: history of colon polyps PLANNED PROCEDURE: Operation Date: 11/09/21 08:45 Proposed Procedures p Colonoscopy 37925,Z12.11(Not Applicable) - Tyler Gregg MD 09/26/2021 This is a pleasant 56 years old gentleman comes today to discuss surveillance colonoscopy.? Last one was done about 5 years ago and colon polyps were removed. Interim history 11/09/2021 Patient comes today for surveillance colonoscopy ROS All systems have been reviewed negative except as for the above or per problem list. Medications/Allergies* Home Medications Medication Instructions Recorded Confirmed Type aspirin 325 mg tablet,delayed 325 mg PO DAILY 05/03/19 11/09/21 History release carisoprodol 350 mg tablet (Soma) 350 mg PO TID PRN Pain 05/09/21 11/09/21 History insulin glargine 100 unit/mL (3 70 unit SUBCUT DAILY 10/10/21 11/09/21 History mL) subcutaneous pen (Lantus Solostar U-100 Insulin) amlodipine 10 mg tablet 10 mg PO DAILY 11/07/21 11/09/21 History metoprolol succinate 50 mg 50 mg PO DAILY 11/07/21 11/09/21 History tablet,extended release 24 hr Allergies/Adverse Reactions Allergy/AdvReac Type Severity Reaction Status Date / Time metformin Allergy ADR-Diarrhe Verified 09/27/21 19:03 a Pertinent History/Comorbid Conditions* Medical History (Updated 09/12/21 @ 08:44 by Ivelisse Bauer NP) Chronic kidney disease COVID-19 vaccine administered sambaash, second dose in April 2020 Diabetes mellitus type 2, insulin dependent Dyslipidemia History of diabetic ulcer of foot HTN (hypertension) Surgical History (Updated 09/10/21 @ 10:59 by Ivelisse Bauer NP) History of Achilles tendon repair (~2017) History of amputation of toe (~2016) History of amputation of toe (~2017) several History of colonoscopy with polypectomy 2017 History of hand surgery History of transmetatarsal amputation of right foot (~2017) Hx of cholecystectomy (~2004) Hx of sinus surgery Family History (Updated 11/16/20 @ 21:54 by Lorelei Grace MD) CAD (coronary artery disease) Father Heart attack at age 80 Denies family history of Cancer Social History Smoking and tobacco status: former smoker Second hand smoke exposure: No Alcohol intake: never Lives independently: Yes Marital status: Number of children: 2 Current occupational status: employed Current gender identity: Male Pertinent Exam Findings alert, oriented x 3, regular rate & rhythm and procedure specific exam findings (Abdominal exam nontender nondistended soft) Recommendations Surgery/Procedure today (Surveillance colonoscopy) Coding Level of Care Code Acute Spanish 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
[2021-11-09 07:56] VITALS: BP 138/76; PULSE 92; RESP 16; TEMP 36.2; O2SAT 99
[2021-11-09] MEDS: sodium chloride 0.9% 1,000 ML 30 ML IV (08:02)
--- NOTE | 2021-11-09 08:05 | ANES.PREANE2 ---
Pre-Anesthetic Assessment Height/Weight: Height 1.93 m Weight 145.15 kg Temp Pulse Resp BP Pulse Ox O2 Del Method 97.1 F L 92 16 138/76 99 11/09/21 07:56 11/09/21 07:56 11/09/21 07:56 11/09/21 07:56 11/09/21 07:56 11/09/21 07:56 Preop Diagnosis: Colon polyps Operation Date: 11/09/21 08:45 Proposed Procedures p Colonoscopy 34955,Z12.11(Not Applicable) - Tyler Gregg MD Familial anesthetic complications: None Was Beta Yoly taken within 24 hours: Yes Was Clonidine taken within 24 hours: N/A Last intake: Intake Last Liquid Date 11/09/21 Last Liquid Time 01:00 Last Solid Date 11/07/21 Last Solid Time 22:30 Social No alcohol and No tobacco Exam alert, oriented x 3, clear to auscultation bilaterally and regular rate & rhythm Airway Submandibular: within normal limits Cervical ROM: within normal limits Mallampati: Class I Dentition: full History/ROS No significant complaints Pulmonary None reported CV/HEM Hypertension METS > 4 Chronic Renal Insufficiency Dysuria Hepatic None reported GI None reported Metabolic Diabetes Mellitus and Hyperlipidemia [facility] [place] None reported Neuropsych Neuropathy (Paresthesia ) Anesthetic Plan ASA status: 3 Anesthesia: Anesthesia Evaluation and General Other: I discussed with the patient risks, goals, and benefits of MAC and general anesthesia. We discussed spectrum of MAC anesthesia including conversion to general as well as possibility of recall of intraoperative stimuli including discomfort/pain. Patient agrees to proceed with MAC. Patient took his morning insulin prior to BG check today. Will reassess BG post op, plan discussed with RN Risk of > 500 ml blood loss (7ml/kg in children): No Medications/Allergies Home Medications Medication Instructions Recorded Confirmed Last Taken Type aspirin 325 mg tablet,delayed 325 mg PO DAILY 05/03/19 11/09/21 11/06/21 History release bd pen needles ultra fine III #100 ea 01/09/21 11/07/21 Unknown Rx carisoprodol 350 mg tablet (Soma) 350 mg PO TID PRN Pain 05/09/21 11/09/21 11/09/21 History blood sugar diagnostic (OneTouch #100 ea 05/15/21 11/07/21 Unknown Rx Ultra Test) blood-glucose meter #1 ea 05/15/21 11/07/21 Unknown Rx blood-glucose meter,continuous #1 ea 05/23/21 11/07/21 Unknown Rx (Dexcom G6 [employer]) blood-glucose transmitter (Dexcom #1 ea 05/23/21 11/07/21 Unknown Rx G6 Transmitter) glucagon 1 mg solution for 1 mg SUBCUT Q20M PRN hypoglycemia 05/23/21 11/09/21 Unknown Rx injection (Glucagon Emergency Kit) #2 ea Diabetic Shoes with 3 pairs of #1 ea 06/05/21 11/07/21 Unknown Rx inserts insulin aspart U-100 100 unit/mL See Rx Instructions .Route 09/10/21 11/09/21 11/09/21 Rx (3 mL) subcutaneous pen (Novolog .COMPLEX #45 mL Flexpen U-100 Insulin aspart) valsartan 160 mg tablet (Diovan) 160 mg PO DAILY #30 tabs 09/10/21 11/09/21 11/09/21 Rx rosuvastatin 40 mg tablet (Crestor) 40 mg PO .QHS 90 days #90 tabs 09/12/21 11/09/21 11/09/21 Rx blood-glucose sensor (Dexcom G6 #3 ea 10/01/21 11/07/21 Unknown Rx Sensor) insulin glargine 100 unit/mL (3 70 unit SUBCUT DAILY 10/10/21 11/09/21 11/08/21 History mL) subcutaneous pen (Lantus Solostar U-100 Insulin) amlodipine 10 mg tablet 10 mg PO DAILY 11/07/21 11/09/21 11/09/21 History metoprolol succinate 50 mg 50 mg PO DAILY 11/07/21 11/09/21 11/09/21 History tablet,extended release 24 hr Allergies Allergy/AdvReac Type Severity Reaction Status Date / Time metformin Allergy ADR-Diarrhe Verified 09/27/21 19:03 a Current Medications Generic Name Dose Route Start Last Admin Trade Name Freq PRN Reason Stop Dose Admin Sodium Chloride 1,000 mls @ 30 mls/hr 11/09/21 07:45 11/09/21 08:02 Sodium Chloride 0.9% IV 30 mls/hr .Q24H KEATON Administration PFSH Anesthesia Medical History Chronic kidney disease COVID-19 vaccine administered [employer], second dose in April 2020 Diabetes mellitus type 2, insulin dependent Dyslipidemia History of diabetic ulcer of foot HTN (hypertension) Surgical History History of Achilles tendon repair (~2017) History of amputation of toe (~2016) History of amputation of toe (~2017) several History of colonoscopy with polypectomy 2016 History of hand surgery History of transmetatarsal amputation of right foot (~2017) Hx of cholecystectomy (~2004) Hx of sinus surgery Family History Father CAD (coronary artery disease) Heart attack at age 80 Denies family history of Cancer Social History Smoking and tobacco status: former smoker Second hand smoke exposure: No Alcohol intake: never Lives independently: Yes Marital status: Number of children: 2 Current occupational status: employed Current gender identity: Male Data Anesthesia Cardiac Studies: No Data to Display
[2021-11-09 08:57] VITALS: BP 105/52; PULSE 71; RESP 18; TEMP 36.1; O2SAT 95
[2021-11-09 09:02] VITALS: BP 103/59; PULSE 75; RESP 18; O2SAT 95
[2021-11-09 09:12] VITALS: BP 124/64; PULSE 76; RESP 18; O2SAT 95
--- NOTE | 2021-11-09 09:26 | PC.NURSE ---
instructed on use of strainer to try and obtain polyp. patient verbalized understanding. all supplies sent with patient.
--- NOTE | 2021-11-09 09:41 | ANE.PACU2 ---
Inpatient post-anesthesia follow up: Airway intact: Yes Vital signs: Temperature 97.0 F Pulse Rate 76 Respiratory Rate 18 Blood Pressure 124/64 Pulse Oximetry 95 Oxygen Delivery Me thod Room Air Oxygen Flow Rate Fraction of Inspir ed Oxygen Hydration adequate: Yes Nausea and vomiting: No Pain level: 1 Mental status: Baseline
== END 2021-11-09 09:30 | disposition home or self-care (01) ==
PROVIDERS: PCP Family Medicine; Visit Provider Surgery
PROC: 0DJD8ZZ Inspection of Lower Intestinal Tract, Via Natural or Artificial Opening Endoscopic (ICD-10-PCS; CPT 45378; principal; 2021-11-09 08:45)
DX: Z12.11 Encounter for screening for malignant neoplasm of colon (principal); K63.5 Polyp of colon; I12.9 Hypertensive chronic kidney disease with stage 1 through stage 4 chronic kidney disease, or unspecified chronic kidney disease; E11.22 Type 2 diabetes mellitus with diabetic chronic kidney disease; N18.9 Chronic kidney disease, unspecified; E78.5 Hyperlipidemia, unspecified; Z79.4 Long term (current) use of insulin; Z79.82 Long term (current) use of aspirin; Z87.891 Personal history of nicotine dependence
CPT/HCPCS: 45385; J2704; J7030

== ENCOUNTER → 2021-11-12 08:09 | Outpatient (BNVA) | payer MEDICAID, SELFPAY | PROVIDERS: PCP Family Medicine; Visit Provider Thoracic Surgery (Cardiothoracic Vascular Surgery) | DX: E11.621 Type 2 diabetes mellitus with foot ulcer (principal); L97.511 Non-pressure chronic ulcer of other part of right foot limited to breakdown of skin; I96 Gangrene, not elsewhere classified | CPT/HCPCS: 15275; A6021; A6206; A6250 ==

== ENCOUNTER 2022-01-02 07:52 | Outpatient (CLI) | payer MEDICAID, SELFPAY ==
--- NOTE | 2022-01-02 08:00 | MR_ITS ---
WS: [id number] MRI RIGHT FOOT with and without CONTRAST. COMPARISON: Radiograph 01/03/2021 and prior MRI 09/04/2017. Multiplanar, multisequence imaging is performed with and without contrast. Sagittal and axial T1 fat sat sequences post-MultiHance 20 cc IV. Status post remote amputation at the tarsometatarsal articulation. Soft tissue ulceration with enhancement along the plantar surface of the foot at the level of the cub oid. Soft tissue ulcer extends over a depth of 1.5 cm and transversely by 1.8 cm. Ulcer extends to th e cuboid but not into the cortex. There is enhancement along the track but no fluid collection. There is additional enhancement involving the surrounding soft tissues near the amputation site. There is a very small amount of marrow edema in the medial talus and a small amount of soft tissue st randing within the superficial deltoid ligament. A small amount of marrow edema in the central talus. No bone destruction. No significant joint effusion. The Achilles tendon is intact. Plantar aponeuros is is intact also. There is a small amount of edema within the plantar aponeurosis at the site of the plantar ulceration. The flexor and extensor tendons are negative for any acute process. MR/MR foot RT wo/w con [id number] IMPRESSION: 1. Soft tissue ulceration with enhancement consistent with phlegmon but no abs cess along the plantar surface of the foot at the level of the cuboid. Soft tis leesa ulceration measures 1.5 x 1.8 cm. 2. No marrow involvement or edema within the cuboid. 3. Mild sprain deltoid ligament with a small amount of edema in the adjacent t alus. 4. Amputation at the tarsometatarsal articulation. 5. Additional cellulitis surrounding the soft tissues at the amputation site.
[2022-01-02] MEDS: gadobenate dimeglumine 20 mL vial IV (09:54)
== END 2022-01-02 07:53 | disposition home or self-care (01) ==
LOC: RAD 07:53
PROVIDERS: PCP Family Medicine; Visit Provider Thoracic Surgery (Cardiothoracic Vascular Surgery)
DX: E11.621 Type 2 diabetes mellitus with foot ulcer (principal); L97.509 Non-pressure chronic ulcer of other part of unspecified foot with unspecified severity; Z89.421 Acquired absence of other right toe(s); L03.115 Cellulitis of right lower limb
CPT/HCPCS: 73720

== ENCOUNTER → 2022-01-07 09:13 | Outpatient (BNVA) | payer MEDICAID, SELFPAY | PROVIDERS: PCP Family Medicine; Visit Provider Thoracic Surgery (Cardiothoracic Vascular Surgery) | DX: Z76.89 Persons encountering health services in other specified circumstances (principal) | CPT/HCPCS: 87070; 87077; 87176; 87186; 87205 ==

== ENCOUNTER → 2022-02-04 13:15 | Outpatient (BNVA) | payer MEDICAID, SELFPAY | PROVIDERS: PCP Family Medicine; Visit Provider Family Medicine | DX: E11.9 Type 2 diabetes mellitus without complications (principal); E78.5 Hyperlipidemia, unspecified; I10 Essential (primary) hypertension; Z79.4 Long term (current) use of insulin | CPT/HCPCS: 80053; 80061; 83036; 84443; 85025 ==

== ENCOUNTER → 2022-04-22 09:56 | Outpatient (BNVA) | payer MEDICAID, SELFPAY | PROVIDERS: PCP Family Medicine; Visit Provider Podiatrist Foot & Ankle Surgery | DX: E11.42 Type 2 diabetes mellitus with diabetic polyneuropathy (principal); L60.3 Nail dystrophy; Z89.431 Acquired absence of right foot; M25.872 Other specified joint disorders, left ankle and foot; M77.42 Metatarsalgia, left foot; Z79.4 Long term (current) use of insulin | CPT/HCPCS: 73630 ==

== ENCOUNTER → 2022-06-12 16:44 | Outpatient (BNVA) | payer MEDICAID, SELFPAY | PROVIDERS: PCP Family Medicine; Visit Provider Family Medicine | DX: Z01.00 Encounter for examination of eyes and vision without abnormal findings (principal); E10.9 Type 1 diabetes mellitus without complications; I10 Essential (primary) hypertension; E78.5 Hyperlipidemia, unspecified; M62.838 Other muscle spasm; Z12.5 Encounter for screening for malignant neoplasm of prostate | CPT/HCPCS: 80053; 80061; 83036; 84443; 85025; G0103 ==